=== PATIENT | female | born 1935 | race Caucasian/White ===

== ENCOUNTER 2017-07-01 11:29 | Inpatient (IN) ==
[2017-07-01] MEDS ORDERED: ACETAMINOPHEN 325 MG TABLET PO PRN (11:45)
[2017-07-01 13:11] LABS: Basophils % 0.4 % (0.0-0.8); Eosinophils # 0.2 10*3/uL (0.0-0.87); Eosinophils % 1.4 % (0.00-10.9); Hematocrit 32.3 VOL% (35.7-47.0); Immature Granulocytes % 0.9 %; Lymphocytes # 1.4 10*3/uL (1.4-4.0); Mean Corpuscular HGB Conc 34.1 GM/DL (32-36); Mean Corpuscular Hemoglobin 33 PG (27-34); Mean Corpuscular Volume 97.9 FL (87-102); Mean Platelet Volume 9.8 FL (9.6-12.0); Monocytes # 0.9 10*3/uL (0.11-0.8); Monocytes % 8.1 % (1.7-12.7); Neutrophils # 8.3 10*3/uL (1.4-7.4); Neutrophils % 76.2 % (38.7-73.9); Platelet Count 170 T/CUMM (130-400); Red Cell Distribution Width 14.6 % (9.3-17.3); White Blood Count 10.8 T/CUMM (4-12)
[2017-07-01] MEDS ORDERED: ACETAMINOPHEN 650 MG PO PRN (13:13)
[2017-07-01] MEDS ORDERED: MAGNESIUM HYDROXIDE SUSP 30 ML UDCUP PO PRN (13:13)
[2017-07-01 13:39] LABS: Albumin 3.6 G/DL (3.4-5.0); Bilirubin,Total 0.7 MG/DL (0.2-1.0); Calcium 9.3 MG/DL (8.5-10.1); Osmolality,Calculated 265.7 MOS/KG (273-304); Potassium 4.9 MMOL/L (3.5-5.1); Total Protein 6.5 G/DL (6.4-8.3)
--- NOTE | 2017-07-01 13:47 | Family Practice History&Phys ---
Assessment and Plan (1) Continuous severe abdominal pain Status: Acute Assessment and plan: 06/23/2017: CT of the abdomen will be ordered. Lipase, amylase and lactic acid are pending. Current Visit: Yes History of Present Illness Chief complaint: Abdominal pain History of present illness: Ms. June is a 81 year old female Patient 81-year-old white male presented the office complaining of bilateral flank and upper abdominal pain. Patient states this been going on now for approximately a week and getting more intense with each passing day. Patient states her home pain medication is not proving beneficial in controlling her discomfort. She has not had any nausea vomiting and she denies any blood in her stool or melena. She is not having any dyspepsia. Her daughter tells me her tumor markers have been quite elevated of late. Patient denies any fever or chills. Patient states the pain is worse with movement and relieved by rest. Home Medications Medication Instructions Recorded Confirmed Type Magnesium 200 mg PO DAILY 10/02/15 01/14/17 History Multivitamin [Multivitamins] 1 each PO DAILY 10/02/15 01/14/17 History Furosemide Tab [Lasix Tab] 40 mg PO DAILY #30 tablet 04/03/16 01/14/17 Rx Calcium Carbonate/Vitamin D3 2 tablet PO DAILY 04/09/16 01/14/17 History [Calcium 500 + Vit D Caplet] Carvedilol [Coreg] 25 mg PO BID 12/09/16 01/14/17 History Levothyroxine Tab [Synthroid Tab] 50 mcg PO DAILY 12/09/16 01/14/17 History Valsartan/Hydrochlorothiazide 1 each PO DAILY 12/09/16 01/14/17 History [Valsartan-Hctz 160-25 mg Tab] Cyanocobalamin (Vitamin B-12) 1 tablet PO DAILY 12/17/16 01/14/17 History [Vitamin B-12] Ferrous Sulfate ER Tab [Slow Fe] 140 mg PO DAILY 12/17/16 01/14/17 History Gabapentin Cap/Tab [Neurontin 200 mg PO TID 12/17/16 01/14/17 History Cap/Tab] Tramadol HCl [Tramadol Tab] 50 mg PO Q6H PRN 12/17/16 01/14/17 History Magnesium Hydroxide Susp [Milk of 30 ml PO DAILY PRN #0 udcup 12/21/16 01/14/17 Rx Magnesia] Aspirin [Ecotrin] 81 mg PO DAILY 01/14/17 01/14/17 History Atorvastatin [Lipitor] 40 mg PO QPM 01/14/17 01/14/17 History Folic Acid Tab 0.4 mg PO DAILY 01/14/17 01/14/17 History HYDROcodone/ACETAMIN 10-325 [Taylor 1 tablet PO Q6H PRN 01/14/17 01/14/17 History 10-325] Ondansetron Odt Tab [Zofran Odt] 4 mg PO DAILY PRN 01/14/17 01/14/17 History Polyethylene Glycol Powder 17 gm PO DAILY 01/14/17 01/14/17 History [Miralax] Acetaminophen Tab [Tylenol Tab] 650 mg PO Q6H PRN #0 tablet 01/17/17 Rx Allergies Allergy/AdvReac Type Severity Reaction Status Date / Time No Known Drug Allergies Allergy Unknown HIVES Verified 12/09/16 10:15 - Constitutional Constitutional: Present: fatigue, weakness. Absent: chills, fever(s), weight gain, weight loss - EENT Eyes: Absent: blurry vision, loss of vision Ears: Absent: decreased hearing, ear pain Nose, mouth and throat: Absent: hoarseness, sinus pressure, sore throat - Cardiovascular Cardiovascular: Absent: chest pain at rest, diaphoresis, dyspnea, orthopnea, palpitations, PND - Respiratory Respiratory: Absent: cough, dyspnea, dyspnea on exertion - Gastrointestinal Gastrointestinal: Present: as per HPI, abdominal pain. Absent: diarrhea, dyspepsia, dysphagia, melena, nausea, vomiting - Genitourinary Genitourinary: Absent: difficulty urinating, urinary frequency, urinary hesitancy - Musculoskeletal Musculoskeletal: Present: as per HPI, back pain (Bilateral flank pain). Absent : arthralgias - Neurological Neurological: Absent: confusion, focal weakness, numbness, paresthesias - Psychiatric Psychiatric: Absent: anxiety, depression - Endocrine Endocrine: Absent: fatigue, polydipsia, polyphagia - Hematologic/Lymphatic Hematologic/Lymphatic: Absent: easy bleeding, easy bruising Medical,Surgical,& Family Hx - Medical History Cardio: History of: CHF, Hypertension Endocrine: History of: Endocrine Cancer (ovarian carcinoma under chemotherapy treatment) No history of: Diabetes Mellitus (NIDDM) Rheumatology: History of;: Rheumatoid Arthritis Respiratory: History of: Pneumonia Genitourinary: History of: Kidney Stones Gastrointestinal: History of: Diverticulitis/ Diverticulosis (years ago), GERD, Polyps (removed years ago 15) Hematology: History of: Anemia Reproductive: History of: Reproductive Problems (OVARIAN CANCER) - Surgical History Cardiac Surgeries: Sugical HX of: Cardiac Catheterization (2004 and 2008, no stents) Abdominal Surgeries: Surgical HX of: Abdominal Surgery (complete hysterectomy) Reproductive Surgeries: Surgical HX of;: Gynecologic Surgery (Ovarian cancer- extensive in [place]), Hysterectomy - Family History Family History: Reports;: Family Cancer (dad, mom, brother) Denies;: Family Diabetes, Family Heart Disease, Family Stroke - Social History Smoking Status: Former smoker Frequency of Alcohol Use: None Type of Drug Use: None Exam - Constitutional Vitals: Period Temp Pulse Resp BP Sys/Pagan Pulse Ox Last 24 Hr 97.7 F 60 20 158/75 96 Exam: General: Objective patient is a well-developed white female who appears uncomfortable. She is able give an excellent history. HEENT: Pupils equal and reactive to light. Patient is noted to have some pallor of her conjunctiva. Her pharynx is benign. Neck: No meningismus, adenopathy, thyromegaly. There are no auscultated carotid bruits. Cardiovascular: Regular rhythm. No murmurs or gallops Chest: Clear to auscultation without rales rhonchi wheezes. Abdomen: Patient's noted to have some mild direct upper abdominal tenderness directly. There is no no masses, rebound, guarding or abnormal bowel sounds. Neuro: Cranial nerves intact and DTRs and strength symmetric in all extremities. Dermatologic: No evidence of abnormal lesions or masses. Musculoskeletal: There is no joint swelling or tenderness or deformity. Extremities: There is no calf swelling or tenderness. Results - Labs CBC & BMP: 07/01/17 12:58 07/01/17 12:58 Lab Results: I have reviewed the past 24 hour labs
[2017-07-01] MEDS ORDERED: ONDANSETRON ODT 4 MG TABLET PO PRN (14:00)
[2017-07-01 14:45] LABS: Lactic Acid 0.4 MMOL/L (0.4-2.0)
--- NOTE | 2017-07-01 16:05 | CT Report ---
Referring physician: Ted Huynh EXAM: CT abdomen and pelvis with contrast DATE: 07/01/2017 COMPARISON: 01/11/2017 REASON: Severe generalized abdominal pain, history of ovarian cancer TECHNIQUE: Axial images of the abdomen and pelvis were obtained after administration of 80 cc of Omnipaque 350 IV contrast. Oral contrast was also administered. Coronal and sagittal reformatted images were also provided. Total DLP is 674.80 mGy*cm. FINDINGS: Persistent atelectasis/scarring at the visualized lung bases with cardiomegaly and coronary artery calcifications. Minimal elongation of the right lobe of the liver with no masses, dilated ducts, or calcified gallstones. Multiple calcified granulomata are noted in the spleen which remains normal in size. Inhomogeneous enhancement on the initial scans but no obvious masses are noted on the delayed scans. The pancreas and adrenal glands are stable in appearance. Cortical scarring kidneys with multiple left renal cysts. Persistent 12 mm calcification in the cortex of the midpole of the left kidney. No definite ureteral calculi are identified. Calcification in the wall of the nondilated abdominal aorta with no adjacent adenopathy. 65 mm hiatal hernia with portions of the small bowel minimally larger in size. The oral contrast reaches the distal small bowel but not the colon. Progressive [id number] gaseous distention of the colon with increased fecal material. Diverticulosis of the colon with no evidence of definite diverticulitis with suboptimal demonstration of the appendix. No free air is identified. Progressive minimal ascites in the abdomen and pelvis with thickening of the mesentery. Prior hysterectomy with no acute findings in the urinary bladder. The urinary bladder is more distended to the level of S1-S2. IMPRESSION: Status post hysterectomy with progressive minimal abdominal and pelvic ascites and what appears to be some thickening of the mesentery. This finding could be related to possible metastatic disease in patient with known history of ovarian cancer. 65 mm hiatal hernia. The oral contrast does not reach the colon with minimal increase in the size of the small bowel. Follow-up x-ray is recommended to document passage into the colon. There is also mild to moderate gaseous distention of the colon which could be related to ileus, etc. There is increased fecal material in colon with diverticulosis of the colon. Diffuse arterial calcifications. Multiple renal cysts with stable calcification in the left kidney. The CT exam was performed using one or more of the following dose reduction techniques: Automated exposure control and adjustment of the mA and/or kV according to patient size. PROCEDURE INTERPRETED AT [facility] DEPARTMENT OF RADIOLOGY Final Report Signed by: Dr. Shreya Hughes
[2017-07-01] MEDS: SODIUM CHLORIDE 0.45% 1,000 ML IV SCH (16:39)
[2017-07-01] MEDS: CARVEDILOL 25 MG TABLET PO SCH (16:39)
[2017-07-01 19:06] LABS: Apearance,Urine CLEAR (Clear); Bilirubin,Urine Negative (Negative); Blood, Urine Negative (Negative); Glucose,Urine (UA) Negative (Negative); Ketones,Urine Negative (Negative); Nitrite,Urine Negative (Negative); Protein,Urine Negative; Urine Color Straw (Yellow); Urine Specific Gravity 1.024 (1.001-1.035); Urine Urobilinogen < 2.0 EU/DL (0.2-1.0); WBC,Urine <1 /HPF (0-6)
[2017-07-01] MEDS: ATORVASTATIN 40 MG TABLET PO SCH (21:53)
[2017-07-01] MEDS: DOCUSATE SODIUM 100 MG CAPSULE PO SCH (21:53)
[2017-07-01] MEDS: ONDANSETRON 4 MG/2 ML VIAL IV PRN (21:58)
[2017-07-02] MEDS: LEVOTHYROXINE 50 MCG TABLET PO SCH (06:08)
[2017-07-02] MEDS: SODIUM CHLORIDE 0.45% 1,000 ML IV SCH (06:08)
--- NOTE | 2017-07-02 07:37 | Family Practice Progress Note ---
Family Practice - PN: Subj Interval history: Patient states she is having more back pain this morning. Looks very uncomfortable after getting up and going to the restroom. Patient scheduled for MRI this morning. She obviously needs something for pain. Exam (Progress Note) - Constitutional Vitals: Period Temp Pulse Resp BP Sys/Pagan Pulse Ox Last 24 Hr 96.2 F-97.8 F 55-60 20-20 116-158/58-75 91-97 Exam: Objectively well-developed white female who is awake alert and appears quite uncomfortable. She had a great deal pain trying to get her up in bed. Cardiovascular heart rates regular without murmurs or gallops. Respiratory: Lungs clear to auscultation bilaterally. Abdomen: Patient has diffuse direct abdominal tenderness but no rebound or guarding. Neuro: Patient is symmetrical strength lower extremities. Results - Labs CBC & BMP: 07/01/17 12:58 07/01/17 12:58 Lab Results: I have reviewed the past 24 hour labs Assessment and Plan (1) Continuous severe abdominal pain Status: Acute Assessment and plan: 07/01/2017: CT of the abdomen will be ordered. Lipase, amylase and lactic acid are pending. 07/02/2017: Laboratory studies unremarkable. Will proceed with MRI of the L- spine. Current Visit: Yes
--- NOTE | 2017-07-02 07:37 | Oncology Consult Note ---
Assessment and Plan - Time spent with patient Time spent with patient: Greater than 30 minutes History of Present Illness History of present illness: Ms. June is a 81 year old female with history of recurrent ovarian cancer who we are following with observation only now and has been off chemotherapy for what I can recall is about 12 months. We have been following a slow rise in her CA 125 level through clinic but has not seen any definitive evidence of recurrence on imaging. She has stated numerous times that she would like further chemotherapy once we confirm she has recurrence. I have tried to convince her that chemotherapy may not be of any benefit to her but she is adamant that she would like to restart treatment once we confirm she has recurrence. At this point, she is admitted to the hospital yesterday with lower abdominal pain. Talking with her it sounds like her pain is more located in her bilateral flanks and radiates to her back. A CT scan yesterday showed no obvious intra-abdominal pathology. She does have some mild thickening of her mesentery but no definitive areas of recurrence. There is some slight distention of her small bowel and contrast was not yet in the colon but she does not have a clinical presentation of bowel obstruction. She has MRI scheduled today. Home Medications Medication Instructions Recorded Confirmed Type Magnesium 200 mg PO DAILY 10/02/15 01/14/17 History Multivitamin [Multivitamins] 1 each PO DAILY 10/02/15 01/14/17 History Furosemide Tab [Lasix Tab] 40 mg PO DAILY #30 tablet 04/03/16 01/14/17 Rx Calcium Carbonate/Vitamin D3 2 tablet PO DAILY 04/09/16 01/14/17 History [Calcium 500 + Vit D Caplet] Carvedilol [Coreg] 25 mg PO BID 12/09/16 01/14/17 History Levothyroxine Tab [Synthroid Tab] 50 mcg PO DAILY 12/09/16 01/14/17 History Valsartan/Hydrochlorothiazide 1 each PO DAILY 12/09/16 01/14/17 History [Valsartan-Hctz 160-25 mg Tab] Cyanocobalamin (Vitamin B-12) 1 tablet PO DAILY 12/17/16 01/14/17 History [Vitamin B-12] Ferrous Sulfate ER Tab [Slow Fe] 140 mg PO DAILY 12/17/16 01/14/17 History Gabapentin Cap/Tab [Neurontin 200 mg PO TID 12/17/16 01/14/17 History Cap/Tab] Tramadol HCl [Tramadol Tab] 50 mg PO Q6H PRN 12/17/16 01/14/17 History Magnesium Hydroxide Susp [Milk of 30 ml PO DAILY PRN #0 udcup 12/21/16 01/14/17 Rx Magnesia] Aspirin [Ecotrin] 81 mg PO DAILY 01/14/17 01/14/17 History Atorvastatin [Lipitor] 40 mg PO QPM 01/14/17 01/14/17 History Folic Acid Tab 0.4 mg PO DAILY 01/14/17 01/14/17 History HYDROcodone/ACETAMIN 10-325 [Circle 1 tablet PO Q6H PRN 01/14/17 01/14/17 History 10-325] Ondansetron Odt Tab [Zofran Odt] 4 mg PO DAILY PRN 01/14/17 01/14/17 History Polyethylene Glycol Powder 17 gm PO DAILY 01/14/17 01/14/17 History [Miralax] Acetaminophen Tab [Tylenol Tab] 650 mg PO Q6H PRN #0 tablet 01/17/17 Rx Allergies Allergy/AdvReac Type Severity Reaction Status Date / Time No Known Drug Allergies Allergy Unknown HIVES Verified 12/09/16 10:15 Medical,Surgical,& Family Hx - Medical History Cardio: History of: CHF, Hypertension Endocrine: History of: Endocrine Cancer (ovarian carcinoma under chemotherapy treatment) No history of: Diabetes Mellitus (NIDDM) Rheumatology: History of;: Rheumatoid Arthritis Respiratory: History of: Pneumonia Genitourinary: History of: Kidney Stones Gastrointestinal: History of: Diverticulitis/ Diverticulosis (years ago), GERD, Polyps (removed years ago 15) Hematology: History of: Anemia Reproductive: History of: Reproductive Problems (OVARIAN CANCER) - Surgical History Cardiac Surgeries: Sugical HX of: Cardiac Catheterization (2004 and 2008, no stents) Abdominal Surgeries: Surgical HX of: Abdominal Surgery (complete hysterectomy) Reproductive Surgeries: Surgical HX of;: Gynecologic Surgery (Ovarian cancer- extensive in [place]), Hysterectomy - Family History Family History: Reports;: Family Cancer (dad, mom, brother) Denies;: Family Diabetes, Family Heart Disease, Family Stroke - Social History Smoking Status: Former smoker Frequency of Alcohol Use: None Type of Drug Use: None 12 point system: reviewed and no additional remarkable complaints except as stated - Gastrointestinal Gastrointestinal: Present: abdominal pain, constipation. Absent: cramping, diarrhea - Genitourinary Genitourinary ROS female: Present: flank pain - Musculoskeletal Musculoskeletal ROS: Present: back pain Exam - Constitutional Vitals: Period Temp Pulse Resp BP Sys/Pagan Pulse Ox Last 24 Hr 96.2 F-97.8 F 55-60 20-20 116-158/58-75 91-97 General appearance: normal weight, no acute distress - Head Head Exam: Present: normocephalic, atraumatic - Eye Eye Exam: Present: EOMI Pupils: Present: PERRL - ENT ENT exam: Present: normal exam, normal oropharynx - Neck Neck exam: Absent: lymphadenopathy, thyromegaly - Respiratory Respiratory exam: Present: CTAB. Absent: wheezes - Cardiovascular Cardiovascular exam: Present: RRR. Absent: JVD - GI/Abdominal GI/Abdominal exam: Present: soft. Absent: ascites, distended, firm, mass - Neurological Exam Neurological exam: Present: alert, oriented X3 - Psychiatric Psychiatric exam: Present: normal affect, normal mood - Skin Skin exam: Present: warm, dry Results - Labs CBC & BMP: 07/01/17 12:58 07/01/17 12:58 Lab Results: I have reviewed the past 24 hour labs
[2017-07-02] MEDS ORDERED: LACTULOSE 20 GM/30 ML UDCUP PO ONE (09:00)
[2017-07-02] MEDS: CARVEDILOL 25 MG TABLET PO SCH ×2 (09:02→17:46)
[2017-07-02] MEDS: CALCIUM (CARBONATE)/VITAMIN D 600 MG-400 UNIT TABLET PO SCH (09:02)
[2017-07-02] MEDS: ASPIRIN EC 81 MG TABLET PO SCH (09:02)
[2017-07-02] MEDS: CYANOCOBALAMIN 500 MCG TABLET PO SCH (09:03)
[2017-07-02] MEDS: FERROUS SULFATE ER 140 MG TABLET PO SCH (09:03)
[2017-07-02] MEDS: FOLIC ACID 0.4 MG TABLET PO SCH (09:03)
[2017-07-02] MEDS: PANTOPRAZOLE 40 MG TABLET PO SCH (09:03)
[2017-07-02] MEDS: POLYETHYLENE GLYCOL POWDER 17 GM PACK PO SCH (09:03)
[2017-07-02] MEDS: VALSARTAN/HCTZ 80-12.5 MG TABLET PO SCH (09:03)
[2017-07-02] MEDS: DOCUSATE SODIUM 100 MG CAPSULE PO SCH ×2 (09:03→21:50)
[2017-07-02] MEDS: FUROSEMIDE 40 MG TABLET PO SCH (09:03)
[2017-07-02] MEDS: MAGNESIUM OXIDE 400 MG TABLET PO SCH (09:04)
[2017-07-02] MEDS: HYDROmorphone 2 MG/1 ML VIAL IV PRN ×2 (09:04→18:07)
--- NOTE | 2017-07-02 10:50 | XRay Report ---
XR KUB Indication: Generalized abdominal pain Comparison: Abdominal CT dated July 01, 2017 Technique: Frontal views of the abdomen Findings: Nonspecific bowel gas pattern. Residual contrast material noted within the right and transverse colon. Nonspecific left upper quadrant calcific densities measuring 9 and 10 mm respectively likely reflecting granulomatous calcifications of the spleen seen on comparison study. Diffuse osteopenia. Presumed pelvic phleboliths. IMPRESSION: As above. PROCEDURE INTERPRETED AT [facility] DEPARTMENT OF RADIOLOGY Final Report Signed by: Dr Homar Tatum
[2017-07-02] MEDS: ONDANSETRON 4 MG/2 ML VIAL IV PRN ×2 (13:15→19:24)
--- NOTE | 2017-07-02 14:41 | Magnetic Resonance Report ---
MR lumbar spine wo con Indication: Severe back pain Comparison: Lumbar MRI dated December 11, 2016 Technique: Multiplanar MRI imaging of the lumbar spine was performed without the use of intravenous contrast. Findings: Mild marginal osteophyte formation noted at several levels. Vertebral body heights and alignment are maintained. Intervertebral disc space levels: L1-L2: Disc desiccation with minimal loss of disc space height. Minimal diffuse disc bulge without significant spinal canal or neuroforaminal narrowing. L2-L3: Disc desiccation with mild loss of disc space height. Diffuse disc bulge with posterior facet and ligamentum flavum hypertrophy results in moderate spinal canal narrowing as well as [id number] bilateral neuroforaminal narrowing. L3-L4: Disc desiccation. Minimal diffuse disc bulge with posterior facet and ligamentum flavum hypertrophy. Minimal spinal canal narrowing. Mild bilateral neuroforaminal narrowing. L4-L5: Moderate loss of disc space height. Diffuse disc bulge with posterior facet and ligamentum flavum hypertrophy results in severe spinal canal narrowing. There is moderate bilateral neuroforaminal narrowing. L5-S1: Disc desiccation. Mild diffuse disc bulge with posterior facet arthropathy. Mild spinal canal narrowing. Mild bilateral neuroforaminal narrowing. IMPRESSION: Degenerative change of the lumbar spine with spinal canal and neuroforaminal narrowing as detailed above. Spinal canal narrowing appears severe at L4-5. Findings appear similar to study dated December 11, 2016. PROCEDURE INTERPRETED AT [facility] DEPARTMENT OF RADIOLOGY Final Report Signed by: Dr Homar Tatum
--- NOTE | 2017-07-02 17:51 | Pain Management Consult Note ---
Assessment and Plan (1) Thoracic spine pain Problem details: New onset thoracic spinal pain with referral to upper abdomen chest wall Status: Acute Assessment and plan: 07/02/2017. The patient is very pleasant 81-year-old female with a history of ovarian cancer. Possibly 2 weeks ago she developed worsening pain in the mid upper back with radiation around her torso to the upper abdomen. Worst pain being in the mid upper back to her flanks bilaterally. The pain is worsened to the point that it hurts to move and thus she is essentially been bedbound for several days now. It came on suddenly without known injury. Based on my exam and the patient's history several possibilities exist for her pain including the distinct possibility of a vertebral fracture in the thoracic spine. Associated with this she has a thoracic radiculitis. She has a history of ovarian cancer. MRI of the thoracic spine is now necessary. y Current Visit: Yes (2) Lumbar spinal stenosis Problem details: MRI demonstrates lumbar spinal stenosis L4 5 Status: Acute Assessment and plan: The patient has multilevel degenerative change lumbar spine with both foraminal narrowing and severe lumbar spinal stenosis at L4-5 level. She has some mild claudicatory symptomatology ongoing. She also has mild radicular symptomatology with lower extremity pain at times. This is not as severe as her thoracic spinal pain. Current Visit: No History of Present Illness Chief complaint: Back and flank pain History of present illness: Ms. June is a 81 year old female with a two-week history of mid back and flank pain around her ribs bilaterally. Is a throbbing aching stabbing pain worse with any movement. Came on suddenly without any known injury. Due to the severity of the pain her activity level has diminished to essentially being bedbound at this point. Home Medications Medication Instructions Recorded Confirmed Type Magnesium 200 mg PO DAILY 10/02/15 01/14/17 History Multivitamin [Multivitamins] 1 each PO DAILY 10/02/15 01/14/17 History Furosemide Tab [Lasix Tab] 40 mg PO DAILY #30 tablet 04/03/16 01/14/17 Rx Calcium Carbonate/Vitamin D3 2 tablet PO DAILY 04/09/16 01/14/17 History [Calcium 500 + Vit D Caplet] Carvedilol [Coreg] 25 mg PO BID 12/09/16 01/14/17 History Levothyroxine Tab [Synthroid Tab] 50 mcg PO DAILY 12/09/16 01/14/17 History Valsartan/Hydrochlorothiazide 1 each PO DAILY 12/09/16 01/14/17 History [Valsartan-Hctz 160-25 mg Tab] Cyanocobalamin (Vitamin B-12) 1 tablet PO DAILY 12/17/16 01/14/17 History [Vitamin B-12] Ferrous Sulfate ER Tab [Slow Fe] 140 mg PO DAILY 12/17/16 01/14/17 History Gabapentin Cap/Tab [Neurontin 200 mg PO TID 12/17/16 01/14/17 History Cap/Tab] Tramadol HCl [Tramadol Tab] 50 mg PO Q6H PRN 12/17/16 01/14/17 History Magnesium Hydroxide Susp [Milk of 30 ml PO DAILY PRN #0 udcup 12/21/16 01/14/17 Rx Magnesia] Aspirin [Ecotrin] 81 mg PO DAILY 01/14/17 01/14/17 History Atorvastatin [Lipitor] 40 mg PO QPM 01/14/17 01/14/17 History Folic Acid Tab 0.4 mg PO DAILY 01/14/17 01/14/17 History HYDROcodone/ACETAMIN 10-325 [Lucas 1 tablet PO Q6H PRN 01/14/17 01/14/17 History 10-325] Ondansetron Odt Tab [Zofran Odt] 4 mg PO DAILY PRN 01/14/17 01/14/17 History Polyethylene Glycol Powder 17 gm PO DAILY 01/14/17 01/14/17 History [Miralax] Acetaminophen Tab [Tylenol Tab] 650 mg PO Q6H PRN #0 tablet 01/17/17 Rx Allergies Allergy/AdvReac Type Severity Reaction Status Date / Time No Known Drug Allergies Allergy Unknown HIVES Verified 12/09/16 10:15 Medical,Surgical,& Family Hx - Medical History Cardio: History of: CHF, Hypertension Endocrine: History of: Endocrine Cancer (ovarian carcinoma under chemotherapy treatment) No history of: Diabetes Mellitus (NIDDM) Rheumatology: History of;: Rheumatoid Arthritis Respiratory: History of: Pneumonia Genitourinary: History of: Kidney Stones Gastrointestinal: History of: Diverticulitis/ Diverticulosis (years ago), GERD, Polyps (removed years ago 15) Hematology: History of: Anemia Reproductive: History of: Reproductive Problems (OVARIAN CANCER) - Surgical History Cardiac Surgeries: Sugical HX of: Cardiac Catheterization (2004 and 2008, no stents) Abdominal Surgeries: Surgical HX of: Abdominal Surgery (complete hysterectomy) Reproductive Surgeries: Surgical HX of;: Gynecologic Surgery (Ovarian cancer- extensive in [place]), Hysterectomy - Family History Family History: Reports;: Family Cancer (dad, mom, brother) Denies;: Family Diabetes, Family Heart Disease, Family Stroke - Social History Smoking Status: Former smoker Frequency of Alcohol Use: None Type of Drug Use: None - Constitutional Constitutional: Present: fatigue - Respiratory Respiratory: Present: dyspnea - Gastrointestinal Gastrointestinal: Present: constipation - Genitourinary Genitourinary: Present: flank pain - Musculoskeletal Musculoskeletal: Present: arthralgias, back pain, muscle cramps (Both lower extremities) - Neurological Neurological: Present: paresthesias (Feet and shins) Exam - Constitutional Vitals: Period Temp Pulse Resp BP Sys/Pagan Pulse Ox Last 24 Hr 96.0 F-97.9 F 55-68 18-20 107-137/56-75 90-93 General appearance: mild distress - Head Head exam: Present: normocephalic - ENT Mouth exam: Present: normal voice - Neck Neck exam: Present: normal inspection - Respiratory Respiratory exam: Present: rhonchi - Cardiovascular Cardiovascular exam: Present: RRR - GI/Abdominal GI/Abdominal exam: Present: hypoactive bowel sounds, tenderness (Minimal tenderness) - Back Exam Back exam: Present: vertebral tenderness (Thoracic spine) - Neurological Exam Neurological exam: Present: alert, oriented X3, CN II-XII intact, motor sensory deficit (Sensory loss feet and shins) Speech: Present: normal - Skin Skin exam: Present: normal color Results - Labs CBC & BMP: 07/01/17 12:58 07/01/17 12:58
[2017-07-02] MEDS: GABAPENTIN 100 MG CAPSULE PO SCH (21:50)
[2017-07-02] MEDS: ATORVASTATIN 40 MG TABLET PO SCH (21:50)
[2017-07-03] MEDS: SODIUM CHLORIDE 0.45% 1,000 ML IV SCH ×3 (02:46→16:06)
[2017-07-03] MEDS: LEVOTHYROXINE 50 MCG TABLET PO SCH (06:23)
--- NOTE | 2017-07-03 08:07 | Family Practice Progress Note ---
Family Practice - PN: Subj Interval history: Patient states her back pain persists. Seen by Dr. Solis yesterday and is ordering MRI of her thoracic spine. She is indeed having flank pain with this. She is still having nausea and vomiting. Exam (Progress Note) - Constitutional Vitals: Period Temp Pulse Resp BP Sys/Pagan Pulse Ox Last 24 Hr 96.0 F-98.4 F 58-74 18-20 107-160/56-75 90-93 Exam: Objectively well-developed white female who is awake alert and appears uncomfortable this morning. Cardiovascular heart rates regular without murmurs or gallops. Respiratory: Lungs clear to auscultation bilaterally. Abdomen: Patient has diffuse direct abdominal tenderness but no rebound or guarding. Neuro: Patient is symmetrical strength lower extremities. Results - Labs CBC & BMP: 07/01/17 12:58 07/01/17 12:58 Lab Results: I have reviewed the past 24 hour labs Assessment and Plan (1) Continuous severe abdominal pain Status: Acute Assessment and plan: 07/01/2017: CT of the abdomen will be ordered. Lipase, amylase and lactic acid are pending. 07/02/2017: Laboratory studies unremarkable. Will proceed with MRI of the L- spine. 07/03/2017: MRI of the T-spine will be ordered. Current Visit: Yes
[2017-07-03] MEDS: CYANOCOBALAMIN 500 MCG TABLET PO SCH (08:15)
[2017-07-03] MEDS: FERROUS SULFATE ER 140 MG TABLET PO SCH (08:15)
[2017-07-03] MEDS: CALCIUM (CARBONATE)/VITAMIN D 600 MG-400 UNIT TABLET PO SCH (08:15)
[2017-07-03] MEDS: VALSARTAN/HCTZ 80-12.5 MG TABLET PO SCH (08:15)
[2017-07-03] MEDS: PANTOPRAZOLE 40 MG TABLET PO SCH (08:16)
[2017-07-03] MEDS: FOLIC ACID 0.4 MG TABLET PO SCH (08:16)
[2017-07-03] MEDS: GABAPENTIN 100 MG CAPSULE PO SCH ×3 (08:16→21:03)
[2017-07-03] MEDS: MAGNESIUM OXIDE 400 MG TABLET PO SCH (08:16)
[2017-07-03] MEDS: CARVEDILOL 25 MG TABLET PO SCH ×2 (08:16→16:02)
[2017-07-03] MEDS: DOCUSATE SODIUM 100 MG CAPSULE PO SCH ×2 (08:16→21:03)
[2017-07-03] MEDS: ASPIRIN EC 81 MG TABLET PO SCH (08:16)
[2017-07-03] MEDS: POLYETHYLENE GLYCOL POWDER 17 GM PACK PO SCH (08:16)
[2017-07-03] MEDS: FUROSEMIDE 40 MG TABLET PO SCH (08:16)
--- NOTE | 2017-07-03 14:16 | Magnetic Resonance Report ---
History: New onset pain of the thoracic spine. Thoracic radiculitis. History of ovarian cancer Date: 07/03/2017 Study: MRI thoracic spine without contrast Comparison exam: December 11, 2016 The thoracic spine was imaged in the sagittal and axial planes on the 1.5 Shereen magnet without IV contrast. Sequences include T1, T2, and STIR sequences. The study has some mild patient motion artifact. The thoracic cord is normal in caliber and signal without obvious intrinsic mass lesion or edema. There is a relatively acute 20% or less compression fracture involving the superior aspect of the T11 vertebral body. There are well-defined trabecular fracture planes; there is a moderate amount of marrow edema. There is no significant T11 vertebral body retropulsion. There is chronic T8 compression status post interval kyphoplasty since the comparison study. There are no additional compression fractures. There is a lobular hyperintense T1 and T2 hemangioma within the T6 vertebral body as before. There is some mild exaggerated thoracic kyphosis. There is no thoracic subluxation. There is mild scattered thoracic disc narrowing and disc desiccation. There is minimal scattered thoracic spondylosis. There is no thoracic level disc herniation or gross thoracic spinal stenosis of significance. Impression: Relatively acute T11 compression fracture as discussed above PROCEDURE INTERPRETED AT [facility] DEPARTMENT OF RADIOLOGY Final Report Signed by: Dr. Niki Marie
--- NOTE | 2017-07-03 18:06 | Pain Management Progress Note ---
Assessment and Plan (1) Thoracic spine pain Problem details: New onset thoracic spinal pain with referral to upper abdomen chest wall Status: Acute Assessment and plan: 07/03/2017. The patient in fact does have an acute fracture of T11 with approximately 30% volume height loss with the superior endplate fracture. Minimal retropulsion. She has severe pain with any movement and at this point is essentially bedbound due to the severity of her pain. She is now candidate for percutaneous kyphoplasty of T11 due to the severity of pain and loss of activities of daily living. We will proceed with this tomorrow around noon. I discussed the risk benefits and indications of the treatment options with the patient and her son. Y 07/02/2017. The patient is very pleasant 81-year-old female with a history of ovarian cancer. Possibly 2 weeks ago she developed worsening pain in the mid upper back with radiation around her torso to the upper abdomen. Worst pain being in the mid upper back to her flanks bilaterally. The pain is worsened to the point that it hurts to move and thus she is essentially been bedbound for several days now. It came on suddenly without known injury. Based on my exam and the patient's history several possibilities exist for her pain including the distinct possibility of a vertebral fracture in the thoracic spine. Associated with this she has a thoracic radiculitis. She has a history of ovarian cancer. MRI of the thoracic spine is now necessary. y Current Visit: Yes (2) Lumbar spinal stenosis Problem details: MRI demonstrates lumbar spinal stenosis L4 5 Status: Acute Assessment and plan: The patient has multilevel degenerative change lumbar spine with both foraminal narrowing and severe lumbar spinal stenosis at L4-5 level. She has some mild claudicatory symptomatology ongoing. She also has mild radicular symptomatology with lower extremity pain at times. This is not as severe as her thoracic spinal pain. Current Visit: No Pain - Subjective Interval history: Continued mid back pain radiating to her flanks bilaterally, worse with any movement, throbbing aching discomfort. Exam - Constitutional Vitals: Period Temp Pulse Resp BP Sys/Pagan Pulse Ox Last 24 Hr 97.0 F-98.4 F 62-74 18-20 122-168/63-79 90-93 General appearance: normal weight - Back Exam Back exam: Present: vertebral tenderness - Neurological Exam Neurological exam: Present: alert, oriented X3 Results - Labs CBC & BMP: 08/28/17 12:58 07/01/17 12:58
[2017-07-03] MEDS: ATORVASTATIN 40 MG TABLET PO SCH (21:03)
[2017-07-04] MEDS: SODIUM CHLORIDE 0.45% 1,000 ML IV SCH ×2 (04:37→21:19)
--- NOTE | 2017-07-04 07:59 | Family Practice Progress Note ---
Family Practice - PN: Subj Interval history: Patient states her back still causing her considerable discomfort. She is noted to have compression fracture T11 on her MRI of the T-spine. She is scheduled for kyphoplasty today with Dr. Solis. Exam (Progress Note) - Constitutional Vitals: Period Temp Pulse Resp BP Sys/Pagan Pulse Ox Last 24 Hr 97.0 F-98.6 F 61-89 20-20 122-168/56-79 90-92 Exam: Objectively well-developed white female who is awake alert and appears a little more comfortable this morning. Cardiovascular heart rates regular without murmurs or gallops. Respiratory: Lungs clear to auscultation bilaterally. Abdomen: Patient has diffuse direct abdominal tenderness but no rebound or guarding. Neuro: Patient is symmetrical strength lower extremities. Results - Labs CBC & BMP: 07/01/17 12:58 07/01/17 12:58 Lab Results: I have reviewed the past 24 hour labs - Diagnostic Findings Procedure: MRI: report reviewed by me (Compression fracture T11) Assessment and Plan (1) Continuous severe abdominal pain Status: Acute Assessment and plan: 07/01/2017: CT of the abdomen will be ordered. Lipase, amylase and lactic acid are pending. 07/02/2017: Laboratory studies unremarkable. Will proceed with MRI of the L- spine. 07/03/2017: MRI of the T-spine will be ordered. Current Visit: Yes (2) Traumatic compression fracture of T11 thoracic vertebra Status: Acute Assessment and plan: 07/04/2017: Patient scheduled for kyphoplasty today Current Visit: Yes
--- NOTE | 2017-07-04 09:04 | Case Mgmt Physician Query Form ---
TB Signs and Symptoms Screening ([place]) INSTRUCTIONS: To be completed annually on residents/staff with a significant Tuberculin Skin Test (TST) upon admission/hire or a prior significant TST. To be completed on all staff at hire. Please respond to each listed symptom with an (X) in either the "YES" or "NO" box. Do you currently have any of the following symptoms: YES NO ( ) (x ) A cough If yes, is it: ( ) Productive ( ) Non- productive ( ) (x ) Hemoptysis (spitting up blood) ( ) (x ) Chest pains ( ) (x ) Weight Loss ( ) (x ) Fever ( ) ( x) Night Sweats (x ) ( ) Weakness ( ) (x ) Loss of Appetite ( ) (x ) Difficulty Breathing If you answered YES" to any of the above questions, how long have symptoms been present? Comments: CAMRYN
[2017-07-04] MEDS: LEVOTHYROXINE 50 MCG TABLET PO SCH (09:39)
[2017-07-04] MEDS: DOCUSATE SODIUM 100 MG CAPSULE PO SCH ×2 (09:39→21:20)
[2017-07-04] MEDS: CALCIUM (CARBONATE)/VITAMIN D 600 MG-400 UNIT TABLET PO SCH (09:39)
[2017-07-04] MEDS: MAGNESIUM OXIDE 400 MG TABLET PO SCH (09:40)
[2017-07-04] MEDS: FERROUS SULFATE ER 140 MG TABLET PO SCH (09:40)
[2017-07-04] MEDS: GABAPENTIN 100 MG CAPSULE PO SCH ×3 (09:40→21:21)
[2017-07-04] MEDS: PANTOPRAZOLE 40 MG TABLET PO SCH (09:40)
[2017-07-04] MEDS: FOLIC ACID 0.4 MG TABLET PO SCH (09:40)
[2017-07-04] MEDS: POLYETHYLENE GLYCOL POWDER 17 GM PACK PO SCH (09:40)
[2017-07-04] MEDS: CYANOCOBALAMIN 500 MCG TABLET PO SCH (09:40)
[2017-07-04] MEDS: CARVEDILOL 25 MG TABLET PO SCH ×2 (09:41→16:11)
[2017-07-04] MEDS ORDERED: TUBERCULIN SKIN TEST 0.1 ML SYRINGE INTRADERM ONE (10:00)
--- NOTE | 2017-07-04 10:10 | Physician Query Form ---
CLICK EDIT DOCUMENT TO SELECT QUERY ANSWER --> OK --> SIGN Magali Nash RN, CCDS Certified Clinical Mail List Processor W) [phone] (f) [phone] [email or web address] PROVIDERS: Make your selection(s) from the choices in EACH section by typing an "x" and enter comments in the comment section. Please use your independent medical judgment in providing your response. This request does not imply that any particular answer is desired or expected. CLINICAL INDICATORS: (Providers should not edit this section) The medical record indicates that the patient was admitted with back pain, "It came on suddenly without known injury", History of " ovarian cancer" and "has been off chemotherapy for what I can recall is about 12 months". Please provide the following additional clarification regarding the Fracture: ETIOLOGY: select all that apply ( ) Traumatic ( ) Pathologic due to osteoporosis ( ) Pathologic due to neoplastic disease ( ) Pathologic due to metastatic disease ( ) Pathologic due to other disease, please specify: ( ) Due to a combination of trauma and osteoporosis but the trauma alone would not likely have been sufficient to cause the fracture (x ) Clinically unable to determine/cause unknown COMMENTS: PLEASE ALSO DOCUMENT RESPONSE IN PROGRESS NOTES AND/OR DISCHARGE SUMMARY Use of terms such as suspected, likely, or probable (associated with a specific diagnosis that is being evaluated, monitored, or treated as if it exists) are acceptable and can be restated in the discharge summary if not ruled out. MTDD
[2017-07-04] MEDS ORDERED: TISSUE ADHESIVE 1 EACH APPLICATOR TOP ONE (12:57)
[2017-07-04] MEDS ORDERED: ROPIVACAINE 0.5% 30 ML VIAL ONE (12:57)
--- NOTE | 2017-07-04 13:07 | XRay Report ---
Portable chest Date: 07/04/2017 Clinical history: Shortness of breath Comparison: 01/14/2017 Technique: Portable AP sitting chest Findings: The heart is minimally enlarged with arterial calcifications. Stable right venous access catheter. Chronic scarring in the lungs with residual atelectasis at the left lung base. Osteopenia with midthoracic kyphoplasty. Degenerative changes are noted. Incidental carotid artery calcifications. Impression: Chronic scarring in the lungs with residual atelectasis at the left lung base. No significant change in the appearance of the lungs. Osteopenia with prior kyphoplasty. PROCEDURE INTERPRETED AT [facility] DEPARTMENT OF RADIOLOGY Final Report Signed by: Dr. Shreya Hughes
[2017-07-04] MEDS ORDERED: ceFAZolin 1,000 MG VIAL ONE (13:12)
--- NOTE | 2017-07-04 13:45 | Operative Note ---
Date of procedure: 07/04/17 Pre-op diagnosis: Osteophyte compression fracture T11 Post-op diagnosis: same Procedure: Preoperative diagnosis: #1 acute osteoporotic compression fracture T11. Postoperative diagnosis: Same Procedure: Kyphoplasty and biopsy of T11. Anesthesia: MAC Complications: None Findings: The patient tolerated procedure well, partial tenriism of vertebral height was obtained. History of present illness: The patient is admitted to the hospital with intractable back pain due to an acute T11 fracture. She is a candidate for kyphoplasty due to severity of her pain and loss of activities of daily living. She might benefit from a swing bed after today's procedure for full recovery. Procedure note: The risk benefits and indications of the procedure were explained to the patient, including the option to do nothing all, she understood these and wished to proceed. The patient was placed in the prone position on the operating table and all pressure points padded. The back then was prepped with alcohol ChloraPrep allowed to dry and sterilely draped. Strict sterile technique was used throughout the procedure. Skin was raised above the pedicles of T11 bilaterally. Stab wound was made through the skin wheals and through the stab wound was advanced the bone trocar. These were advanced until they struck the posterior aspect of the pedicles of T11 bilaterally under careful fluoroscopic control. Then using a bone mouth are driven down to the pedicles and into the posterior aspect of the T11 vertebral body under fluoroscopy. I then obtain a biopsy of T11 to rule out other pathological causes of the fracture. I then advanced the bone drill into the body of T11 bilaterally. I then placed the balloon bone tamps into the vertebral body of T11 and inflated to 100-200 pounds per square inch, with each side holding 3 cc of contrasted fluid. There is partial tenriism of vertebral body height loss. While was doing this an operator/assistant foreman mixed the bone cement. After adequate set up time I then injected the bone cement using the syringe injection system. This is done after the balloon bone tamps had been removed. A total of 3 cc per side or total of 6 cc altogether were injected into the T11 vertebral body. There is excellent distribution throughout the vertebral body. The stylets then were placed back into the bone trochars and the bone trochars removed intact. The wounds were closed with surgical glue and sterilely dressed and the patient was taken to recovery in satisfactory condition. Anesthesia: MAC Surgeon / Physician: Brian Solis Estimated blood loss: minimal Specimens: none sent Condition: stable Disposition: PACU Results - Labs CBC & BMP: 07/01/17 12:58 07/01/17 12:58 Discharge Plan - Discharge Data Condition at Discharge: Stable - Discharge Medications No Action Multivitamin [Multivitamins] 1 each PO DAILY Magnesium 200 mg PO DAILY Furosemide Tab [Lasix Tab] 40 mg PO DAILY #30 tablet Calcium Carbonate/Vitamin D3 [Calcium 500 + Vit D Caplet] 2 tablet PO DAILY Carvedilol [Coreg] 25 mg PO BID Cyanocobalamin (Vitamin B-12) [Vitamin B-12] 1 tablet PO DAILY Folic Acid Tab 0.4 mg PO DAILY Atorvastatin [Lipitor] 40 mg PO QPM HYDROcodone/ACETAMIN 10-325 [[place] 10-325] 1 tablet PO Q6H PRN PRN Reason: Pain Valsartan/Hydrochlorothiazide [Valsartan-Hctz 160-25 mg Tab] 1 each PO DAILY Levothyroxine Tab [Synthroid Tab] 50 mcg PO DAILY Ferrous Sulfate ER Tab [Slow Fe] 140 mg PO DAILY Gabapentin Cap/Tab [Neurontin Cap/Tab] 200 mg PO TID - Follow Up or Referral - Forms/Instructions
--- NOTE | 2017-07-04 13:47 | Anesthesia Post-Op ---
Anesthesia Post OP - Post Ansesthetic Evaluation Patient seen in post op: Yes Resp: within normal limits CV: within normal limits Mental: within normal limits Temp: within normal limits [id number]: within normal limits Nausea and Vomiting: within normal limits Pain: within normal limits
[2017-07-04] MEDS ORDERED: PROPOFOL 200 MG/20 ML VIAL IV ONE (13:54)
[2017-07-04] MEDS ORDERED: MIDAZOLAM 2 MG/2 ML VIAL ONE (13:55)
[2017-07-04] MEDS ORDERED: fentaNYL 100 MCG/2 ML VIAL ONE (13:55)
[2017-07-04] MEDS ORDERED: hydrALAZINE 20 MG/1 ML VIAL ONE (14:03)
[2017-07-04] MEDS ORDERED: hydrALAZINE 20 MG/1 ML VIAL IV ONE (14:13)
[2017-07-04] MEDS: FUROSEMIDE 40 MG TABLET PO SCH (16:11)
[2017-07-04] MEDS: VALSARTAN/HCTZ 80-12.5 MG TABLET PO SCH (16:11)
[2017-07-04] MEDS: ONDANSETRON 4 MG/2 ML VIAL IV PRN (16:15)
[2017-07-04] MEDS: ATORVASTATIN 40 MG TABLET PO SCH (21:21)
[2017-07-05] MEDS ORDERED: ACETAMINOPHEN 650 MG SUPP RECTAL PRN (00:57)
--- NOTE | 2017-07-05 05:24 | Discharge Summary ---
Hospital Course - Hospital Course Hospital Course: Patient 81-year-old white female with stage IV ovarian cancer who presented to the office with intractable abdominal and flank pain. Patient was admitted my services and CT the abdomen pelvis were performed which revealed no evident etiology of her discomfort. MRI of the lumbosacral spine was obtained which reveal no acute fracture. She was seen in consultation by Dr. Brian Solis ordered and MRI of her thoracic spine and she was found to have a compression deformity of T11. Patient underwent kyphoplasty on 07/04/2017 and states her pain is improved. Were trying to find her swing bed. Patient is still a bit sedated this morning. Diagnosis - Discharge Diagnosis (1) Continuous severe abdominal pain Status: Acute (2) Traumatic compression fracture of T11 thoracic vertebra Status: Acute Discharge Plan - Discharge Data Disposition: Disch/Xfer to Snf Condition at Discharge: Stable Discharge Diet: advance to your usual diet Activity: as per physical therapy Hygiene: no restrictions Weight Bearing at Discharge: full weight bearing Contact your physician if you experience:: fever over 101 - Discharge Medications New Aspirin EC Tab 81 mg PO DAILY tablet Polyethylene Glycol Powder [Miralax] 17 gm PO DAILY Acetaminophen Tab [Tylenol Tab] 650 mg PO Q6H PRN tablet PRN Reason: Fever > 100.4 Or Headache Atorvastatin [Lipitor] 40 mg PO BEDTIME tablet Continue Magnesium 200 mg PO DAILY Furosemide Tab [Lasix Tab] 40 mg PO DAILY #30 tablet Calcium Carbonate/Vitamin D3 [Calcium 500 + Vit D Caplet] 2 tablet PO DAILY Carvedilol [Coreg] 25 mg PO BID Cyanocobalamin (Vitamin B-12) [Vitamin B-12] 1 tablet PO DAILY Folic Acid Tab 0.4 mg PO DAILY Atorvastatin [Lipitor] 40 mg PO QPM HYDROcodone/ACETAMIN 10-325 [[place] 10-325] 1 tablet PO Q6H PRN PRN Reason: Pain Valsartan/Hydrochlorothiazide [Valsartan-Hctz 160-25 mg Tab] 1 each PO DAILY Levothyroxine Tab [Synthroid Tab] 50 mcg PO DAILY Ferrous Sulfate ER Tab [Slow Fe] 140 mg PO DAILY Gabapentin Cap/Tab [Neurontin Cap/Tab] 200 mg PO TID No Action Multivitamin [Multivitamins] 1 each PO DAILY - Follow Up or Referral Follow Up: Dez Huynh MD [Primary Care Provider] - 2 Weeks - Forms/Instructions Exam - Constitutional Vitals: Period Temp Pulse Resp BP Sys/Pagan Pulse Ox Last 24 Hr 97.1 F-101.6 F 61-92 14-20 126-203/59-87 86-94 Exam: Objective well-developed white female who is somnolent and slow to respond this morning. She states her back pain is certainly improved. She follows simple commands accurately. Cardiovascular: Heart rates regular without murmurs or gallops. Respiratory: Lungs clear to auscultation bilaterally. Abdomen: Abdomen soft and nontender to palpation. DS: Provider Date of admission: 07/03/17 11:06 Primary care physician: Dez Huynh MD Attending physician on admission: Dez Huynh MD Consults: 07/01/17 11:45 Consult to Case Mgmt/Social Srvs [CONS] Routine Reason for Case Mgmt/Social Srvs: Discharge Planning 07/01/17 16:19 Consult to Physician [CONS] Routine Comment: Consulting Provider: Lucien Dejesus Person Notified: FROYLAN Date Notified: 07/02/17 Time Notified: 09:40 07/02/17 16:09 Consult to Physical Therapy [CONS] Routine Reason for Physical Therapy: Evaluate and Treat 07/02/17 16:21 Consult to Physician [CONS] Routine Comment: Consulting Provider: Brian Solis 07/04/17 07:57 Consult to Case Mgmt/Social Srvs [CONS] Routine Reason for Case Mgmt/Social Srvs: Swingbed/SNF/[facility] Consult Comment: Patient requests transfer to [facility]. Discharging clinician: Dez Huynh MD Expected date of discharge: 07/05/17
[2017-07-05] MEDS: LEVOTHYROXINE 50 MCG TABLET PO SCH (06:13)
[2017-07-05] MEDS: CYANOCOBALAMIN 500 MCG TABLET PO SCH (10:19)
[2017-07-05] MEDS: FOLIC ACID 0.4 MG TABLET PO SCH (10:20)
[2017-07-05] MEDS: FERROUS SULFATE ER 140 MG TABLET PO SCH (10:20)
[2017-07-05] MEDS: VALSARTAN/HCTZ 80-12.5 MG TABLET PO SCH (10:20)
[2017-07-05] MEDS: GABAPENTIN 100 MG CAPSULE PO SCH ×3 (10:20→20:59)
[2017-07-05] MEDS: CALCIUM (CARBONATE)/VITAMIN D 600 MG-400 UNIT TABLET PO SCH (10:21)
[2017-07-05] MEDS: MAGNESIUM OXIDE 400 MG TABLET PO SCH (10:21)
[2017-07-05] MEDS: FUROSEMIDE 40 MG TABLET PO SCH (10:22)
[2017-07-05] MEDS: DOCUSATE SODIUM 100 MG CAPSULE PO SCH ×2 (10:22→20:59)
[2017-07-05] MEDS: CARVEDILOL 25 MG TABLET PO SCH ×2 (10:23→17:07)
[2017-07-05] MEDS: ASPIRIN EC 81 MG TABLET PO SCH (10:23)
[2017-07-05] MEDS: PANTOPRAZOLE 40 MG TABLET PO SCH (10:23)
[2017-07-05] MEDS: POLYETHYLENE GLYCOL POWDER 17 GM PACK PO SCH (10:23)
[2017-07-05] MEDS: SODIUM CHLORIDE 0.45% 1,000 ML IV SCH ×2 (10:46→23:42)
--- NOTE | 2017-07-05 12:27 | Pathology Report from [facility] ---
[facility] ACCESSION # : [id number] PATIENT NAME : Sergio June ORDERING DR : CHRISTINE MAHAN MD CLINICAL HX: T11 compression fracture POST-OP DX: Same SPECIMEN INFO: T11 biopsy GROSS DESCRIPTION: The specimen is received in formalin labeled with the patients name and consists of a 0.6 x 0.2 cm vetebral body biopsy. Submitted in one cassette following decalcification. DIAGNOSIS FOR SERGIO JUNE: T11 BIOPSY: Cancellous bone, hypocellular with acute hemorrhage; no tumor seen. COLLECTED DATE: 07/04/2017 [facility] REPORT DATE: 07/05/2017 ELECTRONICALLY SIGNED BY: Masoud Thao M.D. 07/05/2017 - 10:02:22 [facility]
[2017-07-05] MEDS: ATORVASTATIN 40 MG TABLET PO SCH (20:59)
[2017-07-06] MEDS: LEVOTHYROXINE 50 MCG TABLET PO SCH (06:31)
--- NOTE | 2017-07-06 09:23 | Family Practice Progress Note ---
Family Practice - PN: Subj Interval history: 07/06/17-patient is generally doing well this a.m. Pain is controlled at present. Denies any new complaints. Patient will not be able to be admitted to swing bed until Saturday. Apparently will not accept new patient on holiday. We will continue present therapy over the weekend. Patient is not able to go home so we will maintain therapy until swing bed is available Exam (Progress Note) - Constitutional Vitals: Period Temp Pulse Resp BP Sys/Pagan Pulse Ox Last 24 Hr 97.8 F-98.8 F 61-74 18-20 107-158/56-82 90-95 Results - Labs CBC & BMP: 07/01/17 12:58 07/01/17 12:58 Specialty Discharge - Follow Up or Referrals Follow up with: Dez Huynh MD [Primary Care Provider] - 07/22/17 11:00 am
[2017-07-06] MEDS: CYANOCOBALAMIN 500 MCG TABLET PO SCH (10:06)
[2017-07-06] MEDS: VALSARTAN/HCTZ 80-12.5 MG TABLET PO SCH (10:07)
[2017-07-06] MEDS: FOLIC ACID 0.4 MG TABLET PO SCH (10:07)
[2017-07-06] MEDS: FERROUS SULFATE ER 140 MG TABLET PO SCH (10:07)
[2017-07-06] MEDS: CALCIUM (CARBONATE)/VITAMIN D 600 MG-400 UNIT TABLET PO SCH (10:07)
[2017-07-06] MEDS: DOCUSATE SODIUM 100 MG CAPSULE PO SCH ×2 (10:08→20:53)
[2017-07-06] MEDS: GABAPENTIN 100 MG CAPSULE PO SCH ×3 (10:08→20:53)
[2017-07-06] MEDS: MAGNESIUM OXIDE 400 MG TABLET PO SCH (10:08)
[2017-07-06] MEDS: ASPIRIN EC 81 MG TABLET PO SCH (10:08)
[2017-07-06] MEDS: CARVEDILOL 25 MG TABLET PO SCH ×2 (10:09→16:27)
[2017-07-06] MEDS: FUROSEMIDE 40 MG TABLET PO SCH (10:09)
[2017-07-06] MEDS: POLYETHYLENE GLYCOL POWDER 17 GM PACK PO SCH (10:09)
[2017-07-06] MEDS: PANTOPRAZOLE 40 MG TABLET PO SCH (10:09)
[2017-07-06] MEDS: SODIUM CHLORIDE 0.45% 1,000 ML IV SCH (12:49)
[2017-07-06] MEDS: ATORVASTATIN 40 MG TABLET PO SCH (20:53)
[2017-07-07] MEDS: ONDANSETRON 4 MG/2 ML VIAL IV PRN (00:20)
[2017-07-07] MEDS: SODIUM CHLORIDE 0.45% 1,000 ML IV SCH ×2 (01:35→01:36)
[2017-07-07 03:36] LABS: Basophils % 0.4 % (0.0-0.8); Eosinophils # 0.2 10*3/uL (0.0-0.87); Eosinophils % 2.3 % (0.00-10.9); Hematocrit 25.2 VOL% (35.7-47.0); Hemoglobin 8.8 GM/DL (12.0-16.0); Immature Granulocytes Absolute 0.07 #; Lymphocytes # 1.1 10*3/uL (1.4-4.0); Lymphocytes % 16.1 % (21.3-54.2); Mean Corpuscular HGB Conc 34.9 GM/DL (32-36); Mean Corpuscular Hemoglobin 33 PG (27-34); Mean Platelet Volume 9.7 FL (9.6-12.0); Monocytes # 0.8 10*3/uL (0.11-0.8); Monocytes % 11.3 % (1.7-12.7); Neutrophils # 4.8 10*3/uL (1.4-7.4); Neutrophils % 68.9 % (38.7-73.9); Platelet Count 150 T/CUMM (130-400); Red Blood Count 2.71 MC/CUMM (3.8-5.5)
[2017-07-07 04:02] LABS: Albumin 2.5 G/DL (3.4-5.0); Bilirubin,Total 1.1 MG/DL (0.2-1.0); Calcium 8.2 MG/DL (8.5-10.1); Osmolality,Calculated 259.5 MOS/KG (273-304); Potassium 3.1 MMOL/L (3.5-5.1); Total Protein 5.3 G/DL (6.4-8.3)
[2017-07-07] MEDS: LEVOTHYROXINE 50 MCG TABLET PO SCH (07:04)
[2017-07-07] MEDS: CYANOCOBALAMIN 500 MCG TABLET PO SCH (10:40)
[2017-07-07] MEDS: FOLIC ACID 0.4 MG TABLET PO SCH (10:40)
[2017-07-07] MEDS: FERROUS SULFATE ER 140 MG TABLET PO SCH (10:42)
[2017-07-07] MEDS: MAGNESIUM OXIDE 400 MG TABLET PO SCH (10:42)
[2017-07-07] MEDS: VALSARTAN/HCTZ 80-12.5 MG TABLET PO SCH (10:42)
[2017-07-07] MEDS: PANTOPRAZOLE 40 MG TABLET PO SCH (10:43)
[2017-07-07] MEDS: CARVEDILOL 25 MG TABLET PO SCH ×2 (10:43→17:39)
[2017-07-07] MEDS: DOCUSATE SODIUM 100 MG CAPSULE PO SCH ×2 (10:43→21:17)
[2017-07-07] MEDS: FUROSEMIDE 40 MG TABLET PO SCH (10:43)
[2017-07-07] MEDS: ASPIRIN EC 81 MG TABLET PO SCH (10:43)
[2017-07-07] MEDS: POLYETHYLENE GLYCOL POWDER 17 GM PACK PO SCH (10:45)
[2017-07-07] MEDS: GABAPENTIN 100 MG CAPSULE PO SCH ×3 (10:45→21:16)
[2017-07-07] MEDS: CALCIUM (CARBONATE)/VITAMIN D 600 MG-400 UNIT TABLET PO SCH (10:46)
--- NOTE | 2017-07-07 12:40 | Family Practice Progress Note ---
Family Practice - PN: Subj Interval history: 07/06/17-patient is generally doing well this a.m. Pain is controlled at present. Denies any new complaints. Patient will not be able to be admitted to swing bed until Saturday. Apparently will not accept new patient on holiday. We will continue present therapy over the weekend. Patient is not able to go home so we will maintain therapy until swing bed is available 07/07/17 -patient generally is doing well. Still states she is very weak. Difficult to sit up. Encourage patient to get up as much as possible. Her a.m. labs revealed a sodium of 125 with a potassium of 3.1. I have changed her IV fluids and encouraged increased fluid intake. We will continue present treatment plan Exam (Progress Note) - Constitutional Vitals: Period Temp Pulse Resp BP Sys/Pagan Pulse Ox Last 24 Hr 97.2 F-98.2 F 58-84 18-20 93-161/53-73 91-96 Results - Labs CBC & BMP: 07/07/17 03:04 07/07/17 03:04 Specialty Discharge - Follow Up or Referrals Follow up with: Dez Huynh MD [Primary Care Provider] - 07/22/17 11:00 am
[2017-07-07] MEDS: SODIUM CHLOR 0.9% KCL 20 MEQ 20 MEQ/1,000 ML BAG IV SCH (13:22)
[2017-07-07] MEDS: ATORVASTATIN 40 MG TABLET PO SCH (21:16)
[2017-07-08] MEDS: SODIUM CHLOR 0.9% KCL 20 MEQ 20 MEQ/1,000 ML BAG IV SCH ×3 (02:16→21:20)
[2017-07-08 04:07] LABS: Basophils % 0.3 % (0.0-0.8); Eosinophils # 0.2 10*3/uL (0.0-0.87); Eosinophils % 2.5 % (0.00-10.9); Hematocrit 26.4 VOL% (35.7-47.0); Hemoglobin 9.3 GM/DL (12.0-16.0); Immature Granulocytes % 1.2 %; Immature Granulocytes Absolute 0.08 #; Lymphocytes # 1.1 10*3/uL (1.4-4.0); Lymphocytes % 16.9 % (21.3-54.2); Mean Corpuscular HGB Conc 35.2 GM/DL (32-36); Mean Corpuscular Hemoglobin 33 PG (27-34); Mean Corpuscular Volume 92.6 FL (87-102); Mean Platelet Volume 9.8 FL (9.6-12.0); Monocytes # 0.8 10*3/uL (0.11-0.8); Monocytes % 11.5 % (1.7-12.7); Neutrophils # 4.5 10*3/uL (1.4-7.4); Neutrophils % 67.6 % (38.7-73.9); Platelet Count 173 T/CUMM (130-400); Red Blood Count 2.85 MC/CUMM (3.8-5.5); Red Cell Distribution Width 13.8 % (9.3-17.3); White Blood Count 6.7 T/CUMM (4-12)
[2017-07-08 04:32] LABS: Calcium 8.7 MG/DL (8.5-10.1); Magnesium 1.5 MG/DL (1.8-2.4); Osmolality,Calculated 261.9 MOS/KG (273-304); Potassium 3.8 MMOL/L (3.5-5.1)
[2017-07-08] MEDS: LEVOTHYROXINE 50 MCG TABLET PO SCH (06:07)
[2017-07-08] MEDS: MAGNESIUM OXIDE 400 MG TABLET PO SCH ×3 (08:46→20:23)
[2017-07-08] MEDS: CALCIUM (CARBONATE)/VITAMIN D 600 MG-400 UNIT TABLET PO SCH (08:46)
[2017-07-08] MEDS: FUROSEMIDE 40 MG TABLET PO SCH (08:46)
[2017-07-08] MEDS: FERROUS SULFATE ER 140 MG TABLET PO SCH (08:46)
[2017-07-08] MEDS: CYANOCOBALAMIN 500 MCG TABLET PO SCH (08:46)
[2017-07-08] MEDS: VALSARTAN/HCTZ 80-12.5 MG TABLET PO SCH (08:46)
[2017-07-08] MEDS: CARVEDILOL 25 MG TABLET PO SCH ×2 (08:47→16:34)
[2017-07-08] MEDS: FOLIC ACID 0.4 MG TABLET PO SCH (08:47)
[2017-07-08] MEDS: GABAPENTIN 100 MG CAPSULE PO SCH ×3 (08:47→20:22)
[2017-07-08] MEDS: PANTOPRAZOLE 40 MG TABLET PO SCH (08:47)
[2017-07-08] MEDS: DOCUSATE SODIUM 100 MG CAPSULE PO SCH ×2 (08:47→20:22)
[2017-07-08] MEDS: POLYETHYLENE GLYCOL POWDER 17 GM PACK PO SCH (08:47)
[2017-07-08] MEDS: ASPIRIN EC 81 MG TABLET PO SCH (08:47)
--- NOTE | 2017-07-08 11:17 | Family Practice Progress Note ---
Family Practice - PN: Subj Interval history: 07/06/17-patient is generally doing well this a.m. Pain is controlled at present. Denies any new complaints. Patient will not be able to be admitted to swing bed until Saturday. Apparently will not accept new patient on holiday. We will continue present therapy over the weekend. Patient is not able to go home so we will maintain therapy until swing bed is available 07/07/17 -patient generally is doing well. Still states she is very weak. Difficult to sit up. Encourage patient to get up as much as possible. Her a.m. labs revealed a sodium of 125 with a potassium of 3.1. I have changed her IV fluids and encouraged increased fluid intake. We will continue present treatment plan 07/08/17 -patient states that she feels some better overall still has difficulty sitting up and getting out of bed. Her a.m. sodium improved at 129. Her potassium is now back in her normal range at 3.8. Her magnesium is decreased at 1.5 and I have started on appropriate supplementation. Patient is pending swing bed placement. I felt that she had been approved for transfer in a.m. but apparently they have not accepted the patient yet. Family states that they are waiting on additional paperwork. We will continue present treatment plan Exam (Progress Note) - Constitutional Vitals: Period Temp Pulse Resp BP Sys/Pagan Pulse Ox Last 24 Hr 97.0 F-98.6 F 60-66 18-20 114-140/51-88 91-97 Results - Labs CBC & BMP: 07/08/17 03:35 07/08/17 03:35 Specialty Discharge - Follow Up or Referrals Follow up with: Dez Huynh MD [Primary Care Provider] - 07/22/17 11:00 am
[2017-07-08] MEDS: ATORVASTATIN 40 MG TABLET PO SCH (20:22)
[2017-07-09] MEDS: LEVOTHYROXINE 50 MCG TABLET PO SCH (06:17)
--- NOTE | 2017-07-09 07:51 | Discharge Summary ---
Hospital Course - Hospital Course Hospital Course: Patient 81-year-old white female with stage IV ovarian cancer who presented to the office with intractable abdominal and flank pain. Patient was admitted my services and CT the abdomen pelvis were performed which revealed no evident etiology of her discomfort. MRI of the lumbosacral spine was obtained which reveal no acute fracture. She was seen in consultation by Dr. Brian Solis ordered and MRI of her thoracic spine and she was found to have a compression deformity of T11. Patient underwent kyphoplasty on 07/04/2017 and states her pain is improved. Were trying to find her swing bed. Patient is still a bit sedated this morning. Patient has some persistent back pain will be fitted for a TLSO brace prior to transfer to swing bed. Diagnosis - Discharge Diagnosis (1) Continuous severe abdominal pain Status: Acute (2) Traumatic compression fracture of T11 thoracic vertebra Status: Acute Specialty Discharge - Follow Up or Referrals Follow up with: Dez Huynh MD [Primary Care Provider] - 07/22/17 11:00 am Discharge Plan - Discharge Data Disposition: Disch/Xfer to Snf Condition at Discharge: Stable Discharge Diet: advance to your usual diet Activity: as per physical therapy Hygiene: no restrictions Weight Bearing at Discharge: full weight bearing Contact your physician if you experience:: fever over 101 - Discharge Medications New Aspirin EC Tab 81 mg PO DAILY tablet Polyethylene Glycol Powder [Miralax] 17 gm PO DAILY Acetaminophen Tab [Tylenol Tab] 650 mg PO Q6H PRN tablet PRN Reason: Fever > 100.4 Or Headache Atorvastatin [Lipitor] 40 mg PO BEDTIME tablet Continue Magnesium 200 mg PO DAILY Furosemide Tab [Lasix Tab] 40 mg PO DAILY #30 tablet Calcium Carbonate/Vitamin D3 [Calcium 500 + Vit D Caplet] 2 tablet PO DAILY Carvedilol [Coreg] 25 mg PO BID Cyanocobalamin (Vitamin B-12) [Vitamin B-12] 1 tablet PO DAILY Folic Acid Tab 0.4 mg PO DAILY Atorvastatin [Lipitor] 40 mg PO QPM HYDROcodone/ACETAMIN 10-325 [Camas 10-325] 1 tablet PO Q6H PRN PRN Reason: Pain Valsartan/Hydrochlorothiazide [Valsartan-Hctz 160-25 mg Tab] 1 each PO DAILY Levothyroxine Tab [Synthroid Tab] 50 mcg PO DAILY Ferrous Sulfate ER Tab [Slow Fe] 140 mg PO DAILY Gabapentin Cap/Tab [Neurontin Cap/Tab] 200 mg PO TID No Action Multivitamin [Multivitamins] 1 each PO DAILY - Follow Up or Referral Follow Up: Dez Huynh MD [Primary Care Provider] - 07/22/17 11:00 am - Forms/Instructions Exam - Constitutional Vitals: Period Temp Pulse Resp BP Sys/Pagan Pulse Ox Last 24 Hr 97.0 F-98.0 F 63-72 16-20 107-140/50-76 91-95 DS: Provider Date of admission: 07/03/17 11:06 Primary care physician: Dez Huynh MD Attending physician on admission: Dez Huynh MD Consults: 07/01/17 11:45 Consult to Case Mgmt/Social Srvs [CONS] Routine Reason for Case Mgmt/Social Srvs: Discharge Planning 07/01/17 16:19 Consult to Physician [CONS] Routine Comment: Consulting Provider: Lucien Dejesus Person Notified: FROYLAN Date Notified: 07/02/17 Time Notified: 09:40 07/02/17 16:09 Consult to Physical Therapy [CONS] Routine Reason for Physical Therapy: Evaluate and Treat 07/02/17 16:21 Consult to Physician [CONS] Routine Comment: Consulting Provider: Brian Solis 07/04/17 07:57 Consult to Case Mgmt/Social Srvs [CONS] Routine Reason for Case Mgmt/Social Srvs: Swingbed/SNF/[facility] Consult Comment: Patient requests transfer to [facility]. Discharging clinician: Dez Huynh MD Expected date of discharge: 07/09/17
[2017-07-09 08:24] VITALS: BP 159/70
[2017-07-09] MEDS: CARVEDILOL 25 MG TABLET PO SCH (09:36)
[2017-07-09] MEDS: SODIUM CHLOR 0.9% KCL 20 MEQ 20 MEQ/1,000 ML BAG IV SCH (09:37)
[2017-07-09] MEDS: CALCIUM (CARBONATE)/VITAMIN D 600 MG-400 UNIT TABLET PO SCH (10:18)
[2017-07-09] MEDS: VALSARTAN/HCTZ 80-12.5 MG TABLET PO SCH (10:19)
[2017-07-09] MEDS: FERROUS SULFATE ER 140 MG TABLET PO SCH (10:19)
[2017-07-09] MEDS: CYANOCOBALAMIN 500 MCG TABLET PO SCH (10:19)
[2017-07-09] MEDS: FUROSEMIDE 40 MG TABLET PO SCH ×2 (10:20→10:28)
[2017-07-09] MEDS: FOLIC ACID 0.4 MG TABLET PO SCH (10:20)
[2017-07-09] MEDS: GABAPENTIN 100 MG CAPSULE PO SCH (10:20)
[2017-07-09] MEDS: PANTOPRAZOLE 40 MG TABLET PO SCH (10:20)
[2017-07-09] MEDS: DOCUSATE SODIUM 100 MG CAPSULE PO SCH (10:20)
[2017-07-09] MEDS: ASPIRIN EC 81 MG TABLET PO SCH (10:20)
[2017-07-09] MEDS: MAGNESIUM OXIDE 400 MG TABLET PO SCH (10:21)
[2017-07-09] MEDS: POLYETHYLENE GLYCOL POWDER 17 GM PACK PO SCH (10:22)
== END 2017-07-09 11:18 | DRG 479 ==
LOC: N.2E
PROVIDERS: ADMIT Family Medicine; ATTEND Family Medicine

== ENCOUNTER 2017-08-25 12:16 | Inpatient (IN) ==
[2017-08-25] MEDS ORDERED: ONDANSETRON 4 MG/2 ML VIAL IV STA (13:40)
[2017-08-25 13:56] LABS: Basophils % 0.4 % (0.0-0.8); Eosinophils % 0.4 % (0.00-10.9); Hematocrit 26.4 VOL% (35.7-47.0); Hemoglobin 9.1 GM/DL (12.0-16.0); Immature Granulocytes Absolute 0.08 #; Lymphocytes # 1.4 10*3/uL (1.4-4.0); Lymphocytes % 16.8 % (21.3-54.2); Mean Corpuscular HGB Conc 34.5 GM/DL (32-36); Mean Corpuscular Hemoglobin 33 PG (27-34); Mean Corpuscular Volume 94.3 FL (87-102); Mean Platelet Volume 9.1 FL (9.6-12.0); Monocytes # 0.5 10*3/uL (0.11-0.8); Monocytes % 6.7 % (1.7-12.7); Neutrophils # 6.1 10*3/uL (1.4-7.4); Neutrophils % 74.7 % (38.7-73.9); Platelet Count 281 T/CUMM (130-400); Red Cell Distribution Width 13.8 % (9.3-17.3); White Blood Count 8.1 T/CUMM (4-12)
[2017-08-25] MEDS ORDERED: ONDANSETRON 4 MG/2 ML VIAL ONE (14:09)
[2017-08-25 14:20] LABS: Albumin 2.5 G/DL (3.4-5.0); Bilirubin,Total 0.4 MG/DL (0.2-1.0); Calcium 8.9 MG/DL (8.5-10.1); Osmolality,Calculated 264.5 MOS/KG (273-304); Potassium 4.4 MMOL/L (3.5-5.1); Total Protein 6.3 G/DL (6.4-8.3)
[2017-08-25 15:01] LABS: Apearance,Urine Slightly Hazy (Clear); Bilirubin,Urine Negative (Negative); Blood, Urine Negative (Negative); Glucose,Urine (UA) Negative (Negative); Ketones,Urine Negative (Negative); Nitrite,Urine Negative (Negative); Protein,Urine Negative; RBC,Urine <1 /HPF (0-4); Squamous Epithelial Cell,Urine Occasional /HPF (0-10); Transitional Epi Cells,Urine Occasional /HPF (<1); Urine Color Yellow (Yellow); Urine Specific Gravity 1.008 (1.001-1.035); Urine Urobilinogen < 2.0 EU/DL (0.2-1.0); WBC,Urine 8 /HPF (0-6)
[2017-08-25] MEDS ORDERED: ONDANSETRON 4 MG/2 ML VIAL IV PRN (19:08)
[2017-08-25] MEDS ORDERED: ACETAMINOPHEN 325 MG TABLET PO PRN (19:08)
[2017-08-25] MEDS: SODIUM CHLORIDE 0.9% 1,000 ML IV SCH (19:59)
[2017-08-25] MEDS: ATORVASTATIN 40 MG TABLET PO SCH (23:20)
[2017-08-25] MEDS: GABAPENTIN 100 MG CAPSULE PO SCH (23:20)
[2017-08-25] MEDS: DOCUSATE SODIUM 100 MG CAPSULE PO SCH (23:21)
[2017-08-25] MEDS: CARVEDILOL 25 MG TABLET PO SCH (23:21)
[2017-08-26] MEDS: SODIUM CHLORIDE 0.9% 1,000 ML IV SCH ×2 (05:59→16:54)
[2017-08-26 07:43] LABS: Basophils % 0.4 % (0.0-0.8); Eosinophils # 0.1 10*3/uL (0.0-0.87); Hematocrit 24.8 VOL% (35.7-47.0); Hemoglobin 8.2 GM/DL (12.0-16.0); Immature Granulocytes % 1.6 %; Immature Granulocytes Absolute 0.11 #; Lymphocytes # 1.5 10*3/uL (1.4-4.0); Lymphocytes % 23.1 % (21.3-54.2); Mean Corpuscular HGB Conc 33.1 GM/DL (32-36); Mean Corpuscular Hemoglobin 32 PG (27-34); Mean Corpuscular Volume 96.5 FL (87-102); Mean Platelet Volume 9.6 FL (9.6-12.0); Monocytes # 0.6 10*3/uL (0.11-0.8); Monocytes % 8.7 % (1.7-12.7); Neutrophils # 4.3 10*3/uL (1.4-7.4); Neutrophils % 65.2 % (38.7-73.9); Platelet Count 284 T/CUMM (130-400); Red Blood Count 2.57 MC/CUMM (3.8-5.5); Red Cell Distribution Width 13.9 % (9.3-17.3); White Blood Count 6.7 T/CUMM (4-12)
[2017-08-26 08:07] LABS: Calcium 8.3 MG/DL (8.5-10.1); Potassium 4.5 MMOL/L (3.5-5.1)
[2017-08-26 08:18] LABS: Free T4 (Free Thyroxine) 1.3 NG/DL (0.76-1.46); Thyroid Stimulating Hormone 4.51 uIU/ml (0.358-3.74)
[2017-08-26] MEDS: FOLIC ACID 0.4 MG TABLET PO SCH (10:25)
[2017-08-26] MEDS: MAGNESIUM OXIDE 400 MG TABLET PO SCH (10:25)
[2017-08-26] MEDS: FERROUS SULFATE ER 140 MG TABLET PO SCH (10:26)
[2017-08-26] MEDS: GABAPENTIN 100 MG CAPSULE PO SCH ×3 (10:27→21:16)
[2017-08-26] MEDS: PANTOPRAZOLE 40 MG TABLET PO SCH (10:27)
[2017-08-26] MEDS: CARVEDILOL 25 MG TABLET PO SCH ×2 (10:28→21:16)
[2017-08-26] MEDS: MULTIVITAMIN (CENTRUM) TABLET PO SCH (10:28)
[2017-08-26] MEDS: DOCUSATE SODIUM 100 MG CAPSULE PO SCH ×3 (10:28→21:17)
[2017-08-26] MEDS: LEVOTHYROXINE 50 MCG TABLET PO SCH (10:28)
[2017-08-26] MEDS: ATORVASTATIN 40 MG TABLET PO SCH (21:15)
[2017-08-27] MEDS: SODIUM CHLORIDE 0.9% 1,000 ML IV SCH ×3 (01:29→15:03)
[2017-08-27 06:03] LABS: Basophils % 0.2 % (0.0-0.8); Eosinophils # 0.1 10*3/uL (0.0-0.87); Eosinophils % 2.1 % (0.00-10.9); Hematocrit 23.7 VOL% (35.7-47.0); Hemoglobin 7.8 GM/DL (12.0-16.0); Immature Granulocytes % 1.3 %; Immature Granulocytes Absolute 0.08 #; Lymphocytes # 1.5 10*3/uL (1.4-4.0); Lymphocytes % 24.3 % (21.3-54.2); Mean Corpuscular HGB Conc 32.9 GM/DL (32-36); Mean Corpuscular Hemoglobin 32 PG (27-34); Mean Corpuscular Volume 96.3 FL (87-102); Mean Platelet Volume 9.3 FL (9.6-12.0); Monocytes # 0.5 10*3/uL (0.11-0.8); Monocytes % 8.7 % (1.7-12.7); Neutrophils # 3.9 10*3/uL (1.4-7.4); Neutrophils % 63.4 % (38.7-73.9); Platelet Count 272 T/CUMM (130-400); Red Blood Count 2.46 MC/CUMM (3.8-5.5); Red Cell Distribution Width 13.8 % (9.3-17.3); White Blood Count 6.1 T/CUMM (4-12)
[2017-08-27 06:34] LABS: Osmolality,Calculated 274.5 MOS/KG (273-304); Potassium 4.1 MMOL/L (3.5-5.1)
[2017-08-27] MEDS: LEVOTHYROXINE 50 MCG TABLET PO SCH (06:34)
[2017-08-27 06:42] LABS: Free T4 (Free Thyroxine) 1.27 NG/DL (0.76-1.46); Thyroid Stimulating Hormone 2.65 uIU/ml (0.358-3.74)
[2017-08-27] MEDS: DOCUSATE SODIUM 100 MG CAPSULE PO SCH ×2 (09:25→21:38)
[2017-08-27] MEDS: GABAPENTIN 100 MG CAPSULE PO SCH ×3 (09:25→21:41)
[2017-08-27] MEDS: FOLIC ACID 0.4 MG TABLET PO SCH (09:26)
[2017-08-27] MEDS: MULTIVITAMIN (CENTRUM) TABLET PO SCH (09:26)
[2017-08-27] MEDS: CARVEDILOL 25 MG TABLET PO SCH ×2 (09:26→21:41)
[2017-08-27] MEDS: PANTOPRAZOLE 40 MG TABLET PO SCH (09:27)
[2017-08-27] MEDS: FERROUS SULFATE ER 140 MG TABLET PO SCH (09:27)
[2017-08-27] MEDS: MAGNESIUM OXIDE 400 MG TABLET PO SCH (09:27)
[2017-08-27] MEDS ORDERED: SODIUM CHLORIDE 0.9% 250 ML IV PRN (11:08)
[2017-08-27] MEDS: ATORVASTATIN 40 MG TABLET PO SCH (21:41)
[2017-08-28 04:41] LABS: Basophils % 0.4 % (0.0-0.8); Eosinophils # 0.2 10*3/uL (0.0-0.87); Hematocrit 31.6 VOL% (35.7-47.0); Hemoglobin 10.8 GM/DL (12.0-16.0); Immature Granulocytes % 1.4 %; Immature Granulocytes Absolute 0.11 #; Lymphocytes # 1.9 10*3/uL (1.4-4.0); Lymphocytes % 23.8 % (21.3-54.2); Mean Corpuscular HGB Conc 34.2 GM/DL (32-36); Mean Corpuscular Hemoglobin 31 PG (27-34); Mean Platelet Volume 9.5 FL (9.6-12.0); Monocytes # 0.7 10*3/uL (0.11-0.8); Monocytes % 8.5 % (1.7-12.7); Neutrophils % 63.9 % (38.7-73.9); Platelet Count 259 T/CUMM (130-400); Red Blood Count 3.51 MC/CUMM (3.8-5.5); Red Cell Distribution Width 17.7 % (9.3-17.3); White Blood Count 7.9 T/CUMM (4-12)
[2017-08-28 05:04] LABS: Calcium 8.2 MG/DL (8.5-10.1); Magnesium 1.4 MG/DL (1.8-2.4); Osmolality,Calculated 274.5 MOS/KG (273-304); Potassium 3.9 MMOL/L (3.5-5.1)
[2017-08-28] MEDS ORDERED: diphenhydrAMINE 50 MG/1 ML VIAL IV ONE (07:41)
[2017-08-28] MEDS ORDERED: FAMOTIDINE 20 MG/2 ML VIAL IV ONE (07:41)
[2017-08-28] MEDS ORDERED: DEXAMETHASONE INJ 10 MG in SODIUM CHLORIDE 0.9% 50 ML IV ONE (08:00)
[2017-08-28] MEDS ORDERED: GRANISETRON 1 MG/1 ML VIAL IV SCH (08:00)
[2017-08-28] MEDS: CARVEDILOL 25 MG TABLET PO SCH ×2 (09:46→20:44)
[2017-08-28] MEDS: FOLIC ACID 0.4 MG TABLET PO SCH (09:46)
[2017-08-28] MEDS: MULTIVITAMIN (CENTRUM) TABLET PO SCH (09:46)
[2017-08-28] MEDS: PANTOPRAZOLE 40 MG TABLET PO SCH (09:46)
[2017-08-28] MEDS: DOCUSATE SODIUM 100 MG CAPSULE PO SCH ×2 (09:46→20:43)
[2017-08-28] MEDS: LEVOTHYROXINE 50 MCG TABLET PO SCH (09:46)
[2017-08-28] MEDS: GABAPENTIN 100 MG CAPSULE PO SCH ×3 (09:46→20:43)
[2017-08-28] MEDS: MAGNESIUM OXIDE 400 MG TABLET PO SCH (09:46)
[2017-08-28] MEDS: FERROUS SULFATE ER 140 MG TABLET PO SCH (10:30)
[2017-08-28] MEDS ORDERED: MAGNESIUM OXIDE 400 MG TABLET PO ONE (13:23)
[2017-08-28] MEDS: ATORVASTATIN 40 MG TABLET PO SCH (20:43)
[2017-08-28] MEDS ORDERED: chlorproMAZINE 25 MG TABLET PO PRN (23:41)
[2017-08-28] MEDS ORDERED: BENZTROPINE 2 MG/2 ML AMP IV PRN (23:41)
[2017-08-28] MEDS ORDERED: MYLANTA/LIDO VISC 2:1 300 ML BOTTLE SWISH/SWAL PRN (23:41)
[2017-08-28] MEDS ORDERED: MYLANTA/LIDO VISC 2:1 300 ML BOTTLE SWISH/SPIT PRN (23:41)
[2017-08-28] MEDS ORDERED: diphenhydrAMINE CAP 25 MG CAPSULE PO PRN (23:41)
[2017-08-28] MEDS ORDERED: traMADol 50 MG TABLET PO PRN (23:41)
[2017-08-28] MEDS ORDERED: ALUMINUM/MAGNES/SIMETH MAX STR 30 ML UDCUP PO PRN (23:41)
[2017-08-28] MEDS ORDERED: PROMETHAZINE INJ 25 MG in SODIUM CHLORIDE 0.9% 50 ML IV PRN (23:41)
[2017-08-28] MEDS ORDERED: MAGNESIUM HYDROXIDE SUSP 30 ML UDCUP PO PRN (23:41)
[2017-08-28] MEDS ORDERED: TEMAZEPAM 7.5 MG CAPSULE PO PRN (23:41)
[2017-08-28] MEDS ORDERED: LACTULOSE 20 GM/30 ML UDCUP PO PRN (23:41)
[2017-08-28] MEDS ORDERED: ONDANSETRON 4 MG/2 ML VIAL IV PRN (23:41)
[2017-08-28] MEDS ORDERED: LOPERAMIDE 2 MG CAPSULE PO PRN ×2 (23:41)
[2017-08-28] MEDS ORDERED: guaiFENesin 200 MG/10 ML UDCUP PO PRN (23:41)
[2017-08-28] MEDS ORDERED: ACETAMINOPHEN 325 MG TABLET PO PRN (23:41)
[2017-08-28] MEDS ORDERED: ALPRAZolam 0.25 MG TABLET PO PRN (23:41)
[2017-08-28] MEDS ORDERED: chlorproMAZINE INJ 25 MG in SODIUM CHLORIDE 0.9% 100 ML IV PRN (23:41)
[2017-08-28] MEDS ORDERED: chlorproMAZINE INJ 50 MG in SODIUM CHLORIDE 0.9% 100 ML IV PRN (23:41)
[2017-08-29] MEDS: SODIUM CHLORIDE 0.9% 1,000 ML IV SCH ×2 (00:12→09:29)
[2017-08-29] MEDS: LEVOTHYROXINE 50 MCG TABLET PO SCH (06:32)
[2017-08-29 08:11] LABS: Apearance,Urine CLEAR (Clear); Bilirubin,Urine Negative (Negative); Blood, Urine Negative (Negative); Glucose,Urine (UA) 50 mg/dL (Negative); Ketones,Urine Negative (Negative); Nitrite,Urine Negative (Negative); Protein,Urine Negative; RBC,Urine <1 /HPF (0-4); Urine Color Straw (Yellow); Urine Specific Gravity 1.006 (1.001-1.035); Urine Urobilinogen < 2.0 EU/DL (0.2-1.0); WBC,Urine <1 /HPF (0-6)
[2017-08-29] MEDS: MULTIVITAMIN (CENTRUM) TABLET PO SCH (08:48)
[2017-08-29] MEDS: FOLIC ACID 0.4 MG TABLET PO SCH (08:49)
[2017-08-29] MEDS: GABAPENTIN 100 MG CAPSULE PO SCH (08:49)
[2017-08-29] MEDS: FERROUS SULFATE ER 140 MG TABLET PO SCH (08:49)
[2017-08-29] MEDS: CARVEDILOL 25 MG TABLET PO SCH (08:50)
[2017-08-29] MEDS: DOCUSATE SODIUM 100 MG CAPSULE PO SCH (08:50)
[2017-08-29] MEDS: PANTOPRAZOLE 40 MG TABLET PO SCH (08:51)
[2017-08-29] MEDS ORDERED: MAGNESIUM OXIDE 400 MG TABLET PO SCH (09:00)
[2017-08-29] MEDS ORDERED: HEPARIN LOCK FLUSH 500 UNIT/5 ML SYRINGE IV ONE (10:02)
[2017-08-29 11:13] VITALS: BP 184/79
== END 2017-08-29 13:05 | disposition home or self-care (01) | DRG 755 ==
LOC: N.ED 12:16 → N.2E 17:14 → N.4E 08-27 11:03
PROVIDERS: ADMIT Family Medicine; ATTEND Family Medicine

== ENCOUNTER 2017-11-14 10:09 | Inpatient (IN) ==
[2017-11-14 10:31] LABS: Apearance,Urine CLEAR (Clear); Bilirubin,Urine Negative (Negative); Blood, Urine Negative (Negative); Glucose,Urine (UA) Negative (Negative); Ketones,Urine Negative (Negative); Nitrite,Urine Negative (Negative); Protein,Urine Negative; Urine Color Straw (Yellow); Urine Specific Gravity 1.005 (1.001-1.035); Urine Urobilinogen < 2.0 EU/DL (0.2-1.0); WBC,Urine <1 /HPF (0-6)
[2017-11-14] MEDS ORDERED: ONDANSETRON 4 MG/2 ML VIAL IV STA (11:15)
[2017-11-14] MEDS ORDERED: ONDANSETRON 4 MG/2 ML VIAL ONE (11:16)
[2017-11-14] MEDS ORDERED: traMADol 50 MG TABLET PO PRN (14:54)
[2017-11-14] MEDS ORDERED: MORPHINE 2 MG/1 ML SYRINGE IV PRN (14:54)
[2017-11-14] MEDS ORDERED: ACETAMINOPHEN 325 MG TABLET PO PRN (14:54)
[2017-11-14] MEDS: SODIUM CHLORIDE 0.45% 1,000 ML IV SCH (15:27)
[2017-11-14] MEDS: HYDROmorphone 2 MG/1 ML VIAL IV PRN (15:28)
[2017-11-14] MEDS: GABAPENTIN 100 MG CAPSULE PO SCH ×2 (15:28→21:32)
[2017-11-14] MEDS: PROMETHAZINE 25 MG TABLET PO PRN (15:31)
[2017-11-14] MEDS: CARVEDILOL 25 MG TABLET PO SCH (17:26)
[2017-11-14 18:07] LABS: Basophils % 0.3 % (0.0-0.8); Eosinophils # 0.2 10*3/uL (0.0-0.87); Hematocrit 26.8 VOL% (35.7-47.0); Hemoglobin 8.9 GM/DL (12.0-16.0); Immature Granulocytes Absolute 0.04 #; Lymphocytes # 1.5 10*3/uL (1.4-4.0); Lymphocytes % 39.7 % (21.3-54.2); Mean Corpuscular HGB Conc 33.2 GM/DL (32-36); Mean Corpuscular Hemoglobin 32 PG (27-34); Mean Corpuscular Volume 96.4 FL (87-102); Mean Platelet Volume 9.8 FL (9.6-12.0); Monocytes # 0.2 10*3/uL (0.11-0.8); Monocytes % 5.7 % (1.7-12.7); Neutrophils # 1.9 10*3/uL (1.4-7.4); Neutrophils % 48.3 % (38.7-73.9); Platelet Count 199 T/CUMM (130-400); Red Blood Count 2.78 MC/CUMM (3.8-5.5); Red Cell Distribution Width 18.9 % (9.3-17.3); White Blood Count 3.8 T/CUMM (4-12)
[2017-11-14 18:29] LABS: Albumin 3.2 G/DL (3.4-5.0); Bilirubin,Total 0.4 MG/DL (0.2-1.0); Calcium 9.1 MG/DL (8.5-10.1); Osmolality,Calculated 261.8 MOS/KG (273-304); Potassium 4.4 MMOL/L (3.5-5.1); Total Protein 6.4 G/DL (6.4-8.3)
[2017-11-14] MEDS ORDERED: DOCUSATE SODIUM 100 MG CAPSULE PO SCH (21:00)
[2017-11-14] MEDS: POTASSIUM GLUCONATE 500 MG TABLET PO SCH (21:31)
[2017-11-14] MEDS: MAGNESIUM OXIDE 400 MG TABLET PO SCH (21:32)
[2017-11-14] MEDS: MULTIVITAMIN (CENTRUM) TABLET PO SCH (21:32)
[2017-11-14] MEDS: ATORVASTATIN 40 MG TABLET PO SCH (21:33)
[2017-11-14] MEDS: DOCUSATE SODIUM 100 MG CAPSULE PO SCH (21:33)
[2017-11-15] MEDS: SODIUM CHLORIDE 0.45% 1,000 ML IV SCH ×2 (06:30→19:59)
[2017-11-15] MEDS: CYANOCOBALAMIN 500 MCG TABLET PO SCH (09:55)
[2017-11-15] MEDS: CARVEDILOL 25 MG TABLET PO SCH ×2 (09:55→16:15)
[2017-11-15] MEDS: DOCUSATE SODIUM 100 MG CAPSULE PO SCH ×2 (09:55→21:07)
[2017-11-15] MEDS: GABAPENTIN 100 MG CAPSULE PO SCH ×3 (09:55→21:07)
[2017-11-15] MEDS: PANTOPRAZOLE 40 MG TABLET PO SCH (09:55)
[2017-11-15] MEDS: VALSARTAN/HCTZ 160-12.5 MG TABLET PO SCH (09:56)
[2017-11-15] MEDS: MULTIVITAMIN (CENTRUM) TABLET PO SCH (21:07)
[2017-11-15] MEDS: MAGNESIUM OXIDE 400 MG TABLET PO SCH (21:07)
[2017-11-15] MEDS: ATORVASTATIN 40 MG TABLET PO SCH (21:08)
[2017-11-15] MEDS: POTASSIUM GLUCONATE 500 MG TABLET PO SCH (21:08)
[2017-11-16] MEDS: GABAPENTIN 100 MG CAPSULE PO SCH ×3 (10:43→21:04)
[2017-11-16] MEDS: CARVEDILOL 25 MG TABLET PO SCH ×2 (10:43→17:21)
[2017-11-16] MEDS: DOCUSATE SODIUM 100 MG CAPSULE PO SCH ×2 (10:43→21:04)
[2017-11-16] MEDS: PANTOPRAZOLE 40 MG TABLET PO SCH (10:44)
[2017-11-16] MEDS: CYANOCOBALAMIN 500 MCG TABLET PO SCH (10:44)
[2017-11-16] MEDS: VALSARTAN/HCTZ 160-12.5 MG TABLET PO SCH (10:44)
[2017-11-16] MEDS: SODIUM CHLORIDE 0.45% 1,000 ML IV SCH ×2 (12:28→21:08)
[2017-11-16] MEDS: POLYETHYLENE GLYCOL POWDER 17 GM PACK PO SCH (12:28)
[2017-11-16] MEDS: ATORVASTATIN 40 MG TABLET PO SCH (21:03)
[2017-11-16] MEDS: MAGNESIUM OXIDE 400 MG TABLET PO SCH (21:04)
[2017-11-16] MEDS: MULTIVITAMIN (CENTRUM) TABLET PO SCH (21:04)
[2017-11-16] MEDS: POTASSIUM GLUCONATE 500 MG TABLET PO SCH (21:07)
[2017-11-17] MEDS: SODIUM CHLORIDE 0.45% 1,000 ML IV SCH ×2 (02:05→13:13)
[2017-11-17] MEDS: CARVEDILOL 25 MG TABLET PO SCH ×2 (13:11→17:48)
[2017-11-17] MEDS: DESITIN 4OZ/NYSTATIN 15 GRAM MIXTURE PASTE TOP SCH ×2 (13:12→20:34)
[2017-11-17] MEDS: POLYETHYLENE GLYCOL POWDER 17 GM PACK PO SCH (13:12)
[2017-11-17] MEDS: CYANOCOBALAMIN 500 MCG TABLET PO SCH (13:12)
[2017-11-17] MEDS: GABAPENTIN 100 MG CAPSULE PO SCH ×3 (13:12→20:17)
[2017-11-17] MEDS: PANTOPRAZOLE 40 MG TABLET PO SCH (13:12)
[2017-11-17] MEDS: DOCUSATE SODIUM 100 MG CAPSULE PO SCH ×2 (13:12→20:17)
[2017-11-17] MEDS: VALSARTAN/HCTZ 160-12.5 MG TABLET PO SCH (13:12)
[2017-11-17] MEDS: PROMETHAZINE 25 MG TABLET PO PRN (13:13)
[2017-11-17] MEDS: ACETAMINOPHEN 325 MG TABLET PO PRN (13:13)
[2017-11-17] MEDS: HYDROmorphone 2 MG/1 ML VIAL IV PRN ×2 (13:13→20:15)
[2017-11-17] MEDS: ATORVASTATIN 40 MG TABLET PO SCH (20:17)
[2017-11-17] MEDS: MAGNESIUM OXIDE 400 MG TABLET PO SCH (20:17)
[2017-11-17] MEDS: MULTIVITAMIN (CENTRUM) TABLET PO SCH (20:17)
[2017-11-17] MEDS: ONDANSETRON 4 MG/2 ML VIAL IV PRN (20:25)
[2017-11-17] MEDS: POTASSIUM GLUCONATE 500 MG TABLET PO SCH (20:34)
[2017-11-18] MEDS: SODIUM CHLORIDE 0.45% 1,000 ML IV SCH ×2 (05:12→22:19)
[2017-11-18] MEDS: HYDROmorphone 2 MG/1 ML VIAL IV PRN ×3 (05:13→15:26)
[2017-11-18] MEDS: ONDANSETRON 4 MG/2 ML VIAL IV PRN ×2 (05:13→15:27)
[2017-11-18] MEDS: CYANOCOBALAMIN 500 MCG TABLET PO SCH (09:03)
[2017-11-18] MEDS: FUROSEMIDE 40 MG TABLET PO PRN (09:03)
[2017-11-18] MEDS: VALSARTAN/HCTZ 160-12.5 MG TABLET PO SCH (09:04)
[2017-11-18] MEDS: CARVEDILOL 25 MG TABLET PO SCH ×2 (09:04→18:32)
[2017-11-18] MEDS: DOCUSATE SODIUM 100 MG CAPSULE PO SCH ×2 (09:04→22:14)
[2017-11-18] MEDS: PANTOPRAZOLE 40 MG TABLET PO SCH (09:04)
[2017-11-18] MEDS: DESITIN 4OZ/NYSTATIN 15 GRAM MIXTURE PASTE TOP SCH ×2 (09:04→22:23)
[2017-11-18] MEDS: GABAPENTIN 100 MG CAPSULE PO SCH ×3 (10:12→22:13)
[2017-11-18] MEDS ORDERED: LACTATED RINGERS 1,000 ML IV SCH (11:30)
[2017-11-18] MEDS ORDERED: fentaNYL 100 MCG/2 ML VIAL ONE (12:38)
[2017-11-18] MEDS ORDERED: MIDAZOLAM 2 MG/2 ML VIAL ONE (12:38)
[2017-11-18] MEDS: POLYETHYLENE GLYCOL POWDER 17 GM PACK PO SCH (13:31)
[2017-11-18] MEDS: MULTIVITAMIN (CENTRUM) TABLET PO SCH (22:13)
[2017-11-18] MEDS: MAGNESIUM OXIDE 400 MG TABLET PO SCH (22:14)
[2017-11-18] MEDS: POTASSIUM GLUCONATE 500 MG TABLET PO SCH (22:14)
[2017-11-18] MEDS: ATORVASTATIN 40 MG TABLET PO SCH (22:14)
[2017-11-19] MEDS: CARVEDILOL 25 MG TABLET PO SCH ×2 (08:39→17:19)
[2017-11-19] MEDS: POLYETHYLENE GLYCOL POWDER 17 GM PACK PO SCH (08:39)
[2017-11-19] MEDS: DOCUSATE SODIUM 100 MG CAPSULE PO SCH ×2 (08:39→21:12)
[2017-11-19] MEDS: CYANOCOBALAMIN 500 MCG TABLET PO SCH (08:39)
[2017-11-19] MEDS: PANTOPRAZOLE 40 MG TABLET PO SCH (08:40)
[2017-11-19] MEDS: VALSARTAN/HCTZ 160-12.5 MG TABLET PO SCH (08:40)
[2017-11-19] MEDS: FUROSEMIDE 40 MG TABLET PO PRN (08:41)
[2017-11-19] MEDS: GABAPENTIN 100 MG CAPSULE PO SCH ×3 (08:41→21:12)
[2017-11-19] MEDS: HYDROmorphone 2 MG/1 ML VIAL IV PRN ×2 (08:43→13:13)
[2017-11-19] MEDS: DESITIN 4OZ/NYSTATIN 15 GRAM MIXTURE PASTE TOP SCH ×2 (08:45→21:23)
[2017-11-19] MEDS ORDERED: TUBERCULIN SKIN TEST 0.1 ML SYRINGE INTRADERM ONE (12:00)
[2017-11-19] MEDS: SODIUM CHLORIDE 0.45% 1,000 ML IV SCH (13:12)
[2017-11-19] MEDS: ONDANSETRON 4 MG/2 ML VIAL IV PRN (17:51)
[2017-11-19] MEDS: POTASSIUM GLUCONATE 500 MG TABLET PO SCH (21:12)
[2017-11-19] MEDS: MAGNESIUM OXIDE 400 MG TABLET PO SCH (21:12)
[2017-11-19] MEDS: MULTIVITAMIN (CENTRUM) TABLET PO SCH (21:12)
[2017-11-19] MEDS: ATORVASTATIN 40 MG TABLET PO SCH (21:12)
[2017-11-20] MEDS: SODIUM CHLORIDE 0.45% 1,000 ML IV SCH ×2 (00:14→21:40)
[2017-11-20] MEDS: CYANOCOBALAMIN 500 MCG TABLET PO SCH (08:53)
[2017-11-20] MEDS: DOCUSATE SODIUM 100 MG CAPSULE PO SCH ×2 (08:54→20:07)
[2017-11-20] MEDS: GABAPENTIN 100 MG CAPSULE PO SCH ×3 (08:54→20:07)
[2017-11-20] MEDS: VALSARTAN/HCTZ 160-12.5 MG TABLET PO SCH (08:54)
[2017-11-20] MEDS: CARVEDILOL 25 MG TABLET PO SCH ×2 (08:54→16:09)
[2017-11-20] MEDS: PANTOPRAZOLE 40 MG TABLET PO SCH (08:56)
[2017-11-20] MEDS: POLYETHYLENE GLYCOL POWDER 17 GM PACK PO SCH (08:56)
[2017-11-20] MEDS: DESITIN 4OZ/NYSTATIN 15 GRAM MIXTURE PASTE TOP SCH ×2 (09:03→20:10)
[2017-11-20] MEDS: ONDANSETRON 4 MG/2 ML VIAL IV PRN (11:49)
[2017-11-20] MEDS: HYDROmorphone 2 MG/1 ML VIAL IV PRN (11:59)
[2017-11-20] MEDS: MAGNESIUM OXIDE 400 MG TABLET PO SCH (20:07)
[2017-11-20] MEDS: ACETAMINOPHEN 325 MG TABLET PO PRN (20:07)
[2017-11-20] MEDS: ATORVASTATIN 40 MG TABLET PO SCH (20:07)
[2017-11-20] MEDS: POTASSIUM GLUCONATE 500 MG TABLET PO SCH (20:08)
[2017-11-20] MEDS: MULTIVITAMIN (CENTRUM) TABLET PO SCH (20:08)
[2017-11-20] MEDS ORDERED: MAGNESIUM HYDROXIDE SUSP 30 ML UDCUP PO PRN (21:09)
[2017-11-21] MEDS: GABAPENTIN 100 MG CAPSULE PO SCH (08:05)
[2017-11-21] MEDS: DOCUSATE SODIUM 100 MG CAPSULE PO SCH (08:05)
[2017-11-21] MEDS: CYANOCOBALAMIN 500 MCG TABLET PO SCH (08:05)
[2017-11-21] MEDS: CARVEDILOL 25 MG TABLET PO SCH (08:05)
[2017-11-21] MEDS: VALSARTAN/HCTZ 160-12.5 MG TABLET PO SCH (08:05)
[2017-11-21] MEDS: PANTOPRAZOLE 40 MG TABLET PO SCH (08:06)
[2017-11-21] MEDS: POLYETHYLENE GLYCOL POWDER 17 GM PACK PO SCH (08:06)
[2017-11-21 08:07] VITALS: BP 160/75
[2017-11-21] MEDS: DESITIN 4OZ/NYSTATIN 15 GRAM MIXTURE PASTE TOP SCH (08:07)
[2017-11-21] MEDS: HYDROmorphone 2 MG/1 ML VIAL IV PRN (08:28)
== END 2017-11-21 09:05 | DRG 478 ==
LOC: EDUNIT# → EDBD → N.ED 10:09 → N.EDINP 10:09 → N.2E 12:59
PROVIDERS: ADMIT Family Medicine; ATTEND Family Medicine

== ENCOUNTER 2018-06-09 08:32 | Inpatient (IN) ==
[2018-06-09 09:33] LABS: Basophils # 0.1 10*3/uL (0.0-0.2); Eosinophils # 0.1 10*3/uL (0.0-0.87); Eosinophils % 0.7 % (0.00-10.9); Hematocrit 28.8 VOL% (35.7-47.0); Hemoglobin 9.5 GM/DL (12.0-16.0); Immature Granulocytes % 4.7 %; Immature Granulocytes Absolute 0.33 #; Lymphocytes # 1.2 10*3/uL (1.4-4.0); Lymphocytes % 16.2 % (21.3-54.2); Mean Corpuscular Hemoglobin 32 PG (27-34); Mean Corpuscular Volume 98.3 FL (87-102); Mean Platelet Volume 12.6 FL (9.6-12.0); Monocytes # 0.5 10*3/uL (0.11-0.8); Monocytes % 6.9 % (1.7-12.7); Neutrophils % 70.5 % (38.7-73.9); Red Blood Count 2.93 MC/CUMM (3.8-5.5); Red Cell Distribution Width 20.8 % (9.3-17.3); White Blood Count 7.1 T/CUMM (4-12)
[2018-06-09 09:35] LABS: Platelet Count 37 T/CUMM (130-400)
[2018-06-09 09:41] LABS: Anisocytosis 1+; Band Neutrophils 32 % (0-10); Lymphocytes 20 % (20-55); Macrocytosis 1+; Metamyelocytes 2 %; Platelet Estimate Decreased; Poikilocytosis Slight; Segmented Neutrophils 46 % (50-85); Total Cells Counted 100
[2018-06-09 09:50] LABS: Albumin 3.2 G/DL (3.4-5.0); Calcium 8.8 MG/DL (8.5-10.1); Osmolality,Calculated 275.7 MOS/KG (273-304); Total Protein 6.5 G/DL (6.4-8.3)
[2018-06-09] MEDS ORDERED: MAGNESIUM SULF RIDER 2 GM in PREMIX 1 EACH IV STA (09:54)
[2018-06-09] MEDS ORDERED: ONDANSETRON 4 MG/2 ML VIAL IV STA (10:30)
[2018-06-09] MEDS ORDERED: SODIUM CHLORIDE 0.9% 500 ML IV STA (10:30)
[2018-06-09 11:15] LABS: Apearance,Urine CLEAR (Clear); Bilirubin,Urine Negative (Negative); Blood, Urine Negative (Negative); Glucose,Urine (UA) Negative (Negative); Ketones,Urine Negative (Negative); Nitrite,Urine Negative (Negative); Protein,Urine Negative; Urine Color Yellow (Yellow); Urine Specific Gravity 1.013 (1.001-1.035); WBC,Urine <1 /HPF (0-6)
[2018-06-09] MEDS ORDERED: ONDANSETRON 4 MG/2 ML VIAL IV PRN (13:11)
[2018-06-09] MEDS ORDERED: ACETAMINOPHEN 325 MG TABLET PO PRN (13:11)
[2018-06-09] MEDS: SODIUM CHLORIDE 0.9% 1,000 ML IV SCH (14:20)
[2018-06-09 19:14] LABS: Apearance,Urine CLEAR (Clear); Bilirubin,Urine Negative (Negative); Blood, Urine Negative (Negative); Glucose,Urine (UA) Negative (Negative); Ketones,Urine Negative (Negative); Nitrite,Urine Negative (Negative); Protein,Urine Negative; Squamous Epithelial Cell,Urine Occasional /HPF (0-10); Urine Color Straw (Yellow); WBC,Urine 8 /HPF (0-6)
[2018-06-09] MEDS: DOCUSATE SODIUM 100 MG CAPSULE PO SCH (20:31)
[2018-06-09] MEDS ORDERED: POTASSIUM CHLORIDE 99 MG PO SCH (21:00)
[2018-06-09] MEDS: CARVEDILOL 25 MG TABLET PO SCH (21:32)
[2018-06-09] MEDS: GABAPENTIN 100 MG CAPSULE PO SCH (21:32)
[2018-06-10 05:16] LABS: Basophils # 0.1 10*3/uL (0.0-0.2); Basophils % 0.9 % (0.0-0.8); Eosinophils # 0.1 10*3/uL (0.0-0.87); Eosinophils % 1.2 % (0.00-10.9); Hematocrit 24.3 VOL% (35.7-47.0); Hemoglobin 8.2 GM/DL (12.0-16.0); Immature Granulocytes % 7.3 %; Immature Granulocytes Absolute 0.43 #; Lymphocytes # 1.2 10*3/uL (1.4-4.0); Lymphocytes % 20.6 % (21.3-54.2); Mean Corpuscular HGB Conc 33.7 GM/DL (32-36); Mean Corpuscular Hemoglobin 33 PG (27-34); Mean Corpuscular Volume 96.8 FL (87-102); Mean Platelet Volume 13.4 FL (9.6-12.0); Monocytes # 0.4 10*3/uL (0.11-0.8); Monocytes % 7.3 % (1.7-12.7); NRBC # 0.02 10*3/uL; Neutrophils # 3.7 10*3/uL (1.4-7.4); Neutrophils % 62.7 % (38.7-73.9); Red Blood Count 2.51 MC/CUMM (3.8-5.5); Red Cell Distribution Width 20.8 % (9.3-17.3); White Blood Count 5.9 T/CUMM (4-12)
[2018-06-10 05:20] LABS: Platelet Count 37 T/CUMM (130-400)
[2018-06-10 05:44] LABS: Albumin 2.6 G/DL (3.4-5.0); Bilirubin,Total 0.6 MG/DL (0.2-1.0); Calcium 8.2 MG/DL (8.5-10.1); Osmolality,Calculated 275.5 MOS/KG (273-304); Potassium 3.6 MMOL/L (3.5-5.1); Risk Ratio 3.04; Total Protein 5.5 G/DL (6.4-8.3)
[2018-06-10 05:55] LABS: Band Neutrophils 2 % (0-10); Eosinophils 1 % (0-10); Lymphocytes 21 % (20-55); Segmented Neutrophils 68 % (50-85); Total Cells Counted 100
[2018-06-10 05:56] LABS: Hypochromasia 1+; Ovalocytes Slight; Platelet Estimate Decreased
[2018-06-10] MEDS ORDERED: SODIUM CHLORIDE 0.9% 1,000 ML IV PRN (07:50)
[2018-06-10] MEDS: GABAPENTIN 100 MG CAPSULE PO SCH ×3 (08:42→20:42)
[2018-06-10] MEDS: VALSARTAN/HCTZ 160-12.5 MG TABLET PO SCH (08:43)
[2018-06-10] MEDS: CARVEDILOL 25 MG TABLET PO SCH ×2 (08:43→20:42)
[2018-06-10] MEDS: PANTOPRAZOLE 40 MG VIAL IV SCH (08:43)
[2018-06-10] MEDS: DOCUSATE SODIUM 100 MG CAPSULE PO SCH ×2 (08:43→20:42)
[2018-06-10] MEDS: SODIUM CHLORIDE 0.9% 1,000 ML IV SCH ×3 (22:56→23:03)
[2018-06-11 02:57] LABS: Basophils % 0.6 % (0.0-0.8); Eosinophils # 0.1 10*3/uL (0.0-0.87); Eosinophils % 1.4 % (0.00-10.9); Hematocrit 29.1 VOL% (35.7-47.0); Hemoglobin 9.9 GM/DL (12.0-16.0); Immature Granulocytes % 2.2 %; Immature Granulocytes Absolute 0.14 #; Lymphocytes # 1.6 10*3/uL (1.4-4.0); Lymphocytes % 24.4 % (21.3-54.2); Mean Corpuscular Hemoglobin 32 PG (27-34); Mean Corpuscular Volume 94.5 FL (87-102); Mean Platelet Volume 13.1 FL (9.6-12.0); Monocytes # 0.4 10*3/uL (0.11-0.8); Monocytes % 5.8 % (1.7-12.7); Neutrophils # 4.3 10*3/uL (1.4-7.4); Neutrophils % 65.6 % (38.7-73.9); Red Blood Count 3.08 MC/CUMM (3.8-5.5); Red Cell Distribution Width 20.4 % (9.3-17.3); White Blood Count 6.5 T/CUMM (4-12)
[2018-06-11 03:17] LABS: Albumin 2.5 G/DL (3.4-5.0); Bilirubin,Total 0.8 MG/DL (0.2-1.0); Calcium 7.7 MG/DL (8.5-10.1); Osmolality,Calculated 277.4 MOS/KG (273-304); Potassium 3.4 MMOL/L (3.5-5.1); Total Protein 5.4 G/DL (6.4-8.3)
[2018-06-11 03:18] LABS: Platelet Count 33 T/CUMM (130-400)
[2018-06-11 04:29] LABS: Macrocytosis 1+; Platelet Estimate Decreased
[2018-06-11] MEDS ORDERED: POLYETHYLENE GLYCOL POWDER 17 GM PACK PO PRN ×2 (06:27)
[2018-06-11] MEDS ORDERED: FUROSEMIDE 40 MG TABLET PO PRN (06:27)
[2018-06-11] MEDS: SODIUM CHLORIDE 0.9% 1,000 ML IV SCH ×2 (06:35→20:27)
[2018-06-11] MEDS: PANTOPRAZOLE 40 MG VIAL IV SCH (10:03)
[2018-06-11] MEDS: CARVEDILOL 25 MG TABLET PO SCH ×2 (10:04→21:12)
[2018-06-11] MEDS: MULTIVITAMIN (CENTRUM) TABLET PO SCH (10:04)
[2018-06-11] MEDS: DOCUSATE SODIUM 100 MG CAPSULE PO SCH ×2 (10:04→21:11)
[2018-06-11] MEDS: VALSARTAN/HCTZ 160-12.5 MG TABLET PO SCH (10:04)
[2018-06-11] MEDS: GABAPENTIN 100 MG CAPSULE PO SCH ×3 (10:04→21:11)
[2018-06-11] MEDS: NITROFURANTOIN MACRO/MONO 100 MG CAPSULE PO SCH (21:11)
[2018-06-11] MEDS: POTASSIUM GLUCONATE 500 MG TABLET PO SCH (21:11)
[2018-06-11] MEDS: MAGNESIUM OXIDE 400 MG TABLET PO SCH (21:11)
[2018-06-11] MEDS: PROMETHAZINE 25 MG TABLET PO PRN (22:47)
[2018-06-12] MEDS: SODIUM CHLORIDE 0.9% 1,000 ML IV SCH ×4 (04:30→14:57)
[2018-06-12] MEDS: DOCUSATE SODIUM 100 MG CAPSULE PO SCH ×2 (08:29→20:42)
[2018-06-12] MEDS: PANTOPRAZOLE 40 MG VIAL IV SCH ×2 (08:29→08:32)
[2018-06-12] MEDS: MULTIVITAMIN (CENTRUM) TABLET PO SCH (08:29)
[2018-06-12] MEDS: GABAPENTIN 100 MG CAPSULE PO SCH ×3 (08:29→20:42)
[2018-06-12] MEDS: VALSARTAN/HCTZ 160-12.5 MG TABLET PO SCH (08:29)
[2018-06-12] MEDS: CARVEDILOL 25 MG TABLET PO SCH ×2 (08:29→20:41)
[2018-06-12] MEDS: NITROFURANTOIN MACRO/MONO 100 MG CAPSULE PO SCH (08:29)
[2018-06-12] MEDS: MAGNESIUM OXIDE 400 MG TABLET PO SCH (20:42)
[2018-06-12] MEDS: POTASSIUM GLUCONATE 500 MG TABLET PO SCH (20:42)
[2018-06-12] MEDS ORDERED: SODIUM CHLORIDE 0.9% 1,000 ML IV SCH (22:00)
[2018-06-13 05:39] LABS: Basophils % 0.8 % (0.0-0.8); Eosinophils # 0.1 10*3/uL (0.0-0.87); Eosinophils % 1.6 % (0.00-10.9); Hematocrit 31.7 VOL% (35.7-47.0); Hemoglobin 10.5 GM/DL (12.0-16.0); Immature Granulocytes % 0.8 %; Immature Granulocytes Absolute 0.04 #; Lymphocytes # 1.5 10*3/uL (1.4-4.0); Lymphocytes % 28.1 % (21.3-54.2); Mean Corpuscular HGB Conc 33.1 GM/DL (32-36); Mean Corpuscular Hemoglobin 32 PG (27-34); Mean Corpuscular Volume 96.9 FL (87-102); Mean Platelet Volume 12.9 FL (9.6-12.0); Monocytes # 0.4 10*3/uL (0.11-0.8); Monocytes % 7.2 % (1.7-12.7); Neutrophils # 3.2 10*3/uL (1.4-7.4); Neutrophils % 61.5 % (38.7-73.9); Platelet Count 42 T/CUMM (130-400); Red Blood Count 3.27 MC/CUMM (3.8-5.5); Red Cell Distribution Width 20.1 % (9.3-17.3); White Blood Count 5.2 T/CUMM (4-12)
[2018-06-13 05:43] LABS: Albumin 2.8 G/DL (3.4-5.0); Bilirubin,Total 0.5 MG/DL (0.2-1.0); Calcium 7.8 MG/DL (8.5-10.1); Osmolality,Calculated 277.3 MOS/KG (273-304); Potassium 3.5 MMOL/L (3.5-5.1); Total Protein 5.6 G/DL (6.4-8.3)
[2018-06-13 06:17] LABS: Eosinophils 1 % (0-10); Lymphocytes 24 % (20-55); Segmented Neutrophils 74 % (50-85); Total Cells Counted 100
[2018-06-13 06:18] LABS: Macrocytosis 1+; Platelet Estimate Decreased
[2018-06-13] MEDS: CARVEDILOL 25 MG TABLET PO SCH (10:02)
[2018-06-13] MEDS: VALSARTAN/HCTZ 160-12.5 MG TABLET PO SCH (10:02)
[2018-06-13] MEDS: DOCUSATE SODIUM 100 MG CAPSULE PO SCH (10:02)
[2018-06-13] MEDS: GABAPENTIN 100 MG CAPSULE PO SCH (10:02)
[2018-06-13] MEDS: MULTIVITAMIN (CENTRUM) TABLET PO SCH (10:02)
[2018-06-13] MEDS: PROMETHAZINE 25 MG TABLET PO PRN (12:09)
[2018-06-13 14:21] VITALS: BP 179/87
== END 2018-06-13 12:22 | disposition home health service (06) | DRG 813 ==
LOC: EDUNIT# → EDBD → N.ED 08:32 → N.EDINP 11:56 → N.4E 13:05
PROVIDERS: ADMIT Family Medicine; ATTEND Family Medicine

== ENCOUNTER 2018-08-20 14:42 | Inpatient (IN) ==
[2018-08-20] MEDS ORDERED: ONDANSETRON 4 MG/2 ML VIAL ONE (15:21)
[2018-08-20] MEDS ORDERED: ONDANSETRON 4 MG/2 ML VIAL IV STA (15:21)
[2018-08-20 15:54] LABS: Eosinophils % 2.9 % (0.00-10.9); Hematocrit 19.7 VOL% (35.7-47.0); Hemoglobin 6.6 GM/DL (12.0-16.0); Lymphocytes # 0.7 10*3/uL (1.4-4.0); Lymphocytes % 65.4 % (21.3-54.2); Mean Corpuscular HGB Conc 33.5 GM/DL (32-36); Mean Corpuscular Hemoglobin 33 PG (27-34); Mean Platelet Volume 12.8 FL (9.6-12.0); Monocytes # 0.1 10*3/uL (0.11-0.8); Monocytes % 9.6 % (1.7-12.7); Neutrophils # 0.2 10*3/uL (1.4-7.4); Neutrophils % 22.1 % (38.7-73.9); Platelet Count 59 T/CUMM (130-400); Red Blood Count 2.01 MC/CUMM (3.8-5.5); Red Cell Distribution Width 23.1 % (9.3-17.3)
[2018-08-20 16:17] LABS: Albumin 3.2 G/DL (3.4-5.0); Bilirubin,Total 1.1 MG/DL (0.2-1.0); Calcium 8.6 MG/DL (8.5-10.1); Total Protein 6.8 G/DL (6.4-8.3)
[2018-08-20 16:18] LABS: Osmolality,Calculated 275.8 MOS/KG (273-304); Potassium 3.9 MMOL/L (3.5-5.1)
[2018-08-20] MEDS ORDERED: ACETAMINOPHEN 325 MG TABLET PO PRN ×2 (17:37→19:13)
[2018-08-20] MEDS ORDERED: ONDANSETRON 4 MG/2 ML VIAL IV PRN (17:37)
[2018-08-20 17:51] LABS: Lymphocytes 70 % (20-55); Platelet Estimate Decreased; Segmented Neutrophils 25 % (50-85); Total Cells Counted 100
[2018-08-20 17:52] LABS: Polychromasia Slight
[2018-08-20 17:53] LABS: Acanthocytes 1+; Ovalocytes Slight
[2018-08-20] MEDS ORDERED: POLYETHYLENE GLYCOL POWDER 17 GM PACK PO PRN ×2 (19:13)
[2018-08-20] MEDS ORDERED: FUROSEMIDE 40 MG TABLET PO PRN (19:13)
[2018-08-20] MEDS ORDERED: SODIUM CHLORIDE 0.9% 1,000 ML IV PRN (19:13)
[2018-08-20 20:08] LABS: Basophils % 0.7 % (0.0-0.8); Eosinophils % 1.4 % (0.00-10.9); Hematocrit 20.4 VOL% (35.7-47.0); Hemoglobin 6.9 GM/DL (12.0-16.0); Lymphocytes % 67.1 % (21.3-54.2); Mean Corpuscular HGB Conc 33.8 GM/DL (32-36); Mean Corpuscular Hemoglobin 33 PG (27-34); Mean Corpuscular Volume 98.6 FL (87-102); Mean Platelet Volume 11.6 FL (9.6-12.0); Monocytes # 0.1 10*3/uL (0.11-0.8); Monocytes % 8.9 % (1.7-12.7); NRBC # 0.02 10*3/uL; Neutrophils # 0.3 10*3/uL (1.4-7.4); Neutrophils % 21.9 % (38.7-73.9); Platelet Count 66 T/CUMM (130-400); Red Blood Count 2.07 MC/CUMM (3.8-5.5); Red Cell Distribution Width 23.1 % (9.3-17.3); White Blood Count 1.5 T/CUMM (4-12)
[2018-08-20] MEDS: ONDANSETRON 4 MG/2 ML VIAL IV PRN (20:16)
[2018-08-20] MEDS ORDERED: DOCUSATE SODIUM 100 MG CAPSULE PO SCH (21:00)
[2018-08-20] MEDS: SODIUM CHLORIDE 0.9% 1,000 ML IV SCH (21:17)
[2018-08-20] MEDS: MEGESTROL 40 MG TABLET PO SCH (21:18)
[2018-08-20] MEDS: MAGNESIUM OXIDE 400 MG TABLET PO SCH (21:18)
[2018-08-20] MEDS: CARVEDILOL 25 MG TABLET PO SCH (21:18)
[2018-08-20] MEDS: POTASSIUM GLUCONATE 500 MG TABLET PO SCH (21:18)
[2018-08-20] MEDS: DOCUSATE SODIUM 100 MG CAPSULE PO SCH (21:18)
[2018-08-20] MEDS: GABAPENTIN 100 MG CAPSULE PO SCH (21:18)
[2018-08-20 21:34] LABS: Anisocytosis Slight; Band Neutrophils 2 % (0-10); Burr Cells Slight; Lymphocytes 69 % (20-55); Macrocytosis 2+; Ovalocytes Slight; Platelet Estimate Decreased; Schistocytes Slight; Segmented Neutrophils 22 % (50-85); Total Cells Counted 100
[2018-08-21 05:35] LABS: Eosinophils % 3.1 % (0.00-10.9); Hematocrit 25.4 VOL% (35.7-47.0); Lymphocytes # 0.6 10*3/uL (1.4-4.0); Lymphocytes % 64.6 % (21.3-54.2); Mean Corpuscular HGB Conc 33.5 GM/DL (32-36); Mean Corpuscular Hemoglobin 31 PG (27-34); Mean Corpuscular Volume 93.4 FL (87-102); Mean Platelet Volume 12.8 FL (9.6-12.0); Monocytes # 0.1 10*3/uL (0.11-0.8); Monocytes % 8.3 % (1.7-12.7); Neutrophils # 0.2 10*3/uL (1.4-7.4); Platelet Count 55 T/CUMM (130-400); Red Cell Distribution Width 19.8 % (9.3-17.3)
[2018-08-21 05:40] LABS: Red Blood Count 2.72 MC/CUMM (3.8-5.5)
[2018-08-21 05:41] LABS: Hemoglobin 8.5 GM/DL (12.0-16.0)
[2018-08-21 05:46] LABS: Albumin 2.8 G/DL (3.4-5.0); Bilirubin,Total 1.3 MG/DL (0.2-1.0); Calcium 8.2 MG/DL (8.5-10.1); Osmolality,Calculated 276.7 MOS/KG (273-304); Potassium 3.8 MMOL/L (3.5-5.1); Total Protein 6.1 G/DL (6.4-8.3)
[2018-08-21 06:06] LABS: Band Neutrophils 1 % (0-10); Eosinophils 4 % (0-10); Hypochromasia 1+; Lymphocytes 67 % (20-55); Nucleated Red Blood Cells 1 (0-5); Ovalocytes Slight; Platelet Estimate Decreased; Segmented Neutrophils 23 % (50-85); Total Cells Counted 100
[2018-08-21 06:07] LABS: Atypical Lymphocytes Few; Macrocytosis Slight
[2018-08-21] MEDS ORDERED: hydroCHLOROthiazide 25 MG TABLET PO SCH (09:00)
[2018-08-21] MEDS ORDERED: PANTOPRAZOLE 40 MG TABLET PO SCH (09:00)
[2018-08-21] MEDS ORDERED: ATORVASTATIN 40 MG TABLET PO SCH (09:00)
[2018-08-21] MEDS: DOCUSATE SODIUM 100 MG CAPSULE PO SCH ×2 (10:00→20:32)
[2018-08-21] MEDS: MULTIVITAMIN (CENTRUM) TABLET PO SCH (10:00)
[2018-08-21] MEDS: GABAPENTIN 100 MG CAPSULE PO SCH ×3 (10:00→20:33)
[2018-08-21] MEDS: CARVEDILOL 25 MG TABLET PO SCH ×2 (10:00→20:32)
[2018-08-21] MEDS: amLODIPine 5 MG TABLET PO SCH (10:01)
[2018-08-21] MEDS: MEGESTROL 40 MG TABLET PO SCH ×3 (10:02→20:33)
[2018-08-21] MEDS: PANTOPRAZOLE 40 MG VIAL IV SCH (10:10)
[2018-08-21] MEDS: FILGRASTIM-SNDZ 300 MCG/0.5 ML SYRINGE SUBCUT SCH (11:30)
[2018-08-21] MEDS: SODIUM CHLORIDE 0.9% 1,000 ML IV SCH (14:02)
[2018-08-21] MEDS ORDERED: MAGNESIUM SULF RIDER 2 GM in PREMIX 1 EACH IV PRN (18:35)
[2018-08-21] MEDS: POTASSIUM CHLORIDE IV SCH (20:31)
[2018-08-21] MEDS: MAGNESIUM SULF IV SCH (20:31)
[2018-08-21] MEDS: SODIUM CHLORIDE 0.9% IV SCH (20:31)
[2018-08-21] MEDS: MAGNESIUM OXIDE 400 MG TABLET PO SCH (20:32)
[2018-08-21] MEDS: POTASSIUM GLUCONATE 500 MG TABLET PO SCH (20:32)
[2018-08-22] MEDS: ACETAMINOPHEN 325 MG TABLET PO PRN ×3 (04:24→20:32)
[2018-08-22 05:03] LABS: Basophils % 0.7 % (0.0-0.8); Eosinophils # 0.1 10*3/uL (0.0-0.87); Eosinophils % 3.3 % (0.00-10.9); Hematocrit 23.8 VOL% (35.7-47.0); Hemoglobin 7.9 GM/DL (12.0-16.0); Immature Granulocytes % 9.9 %; Immature Granulocytes Absolute 0.15 #; Lymphocytes # 0.7 10*3/uL (1.4-4.0); Mean Corpuscular HGB Conc 33.2 GM/DL (32-36); Mean Corpuscular Hemoglobin 31 PG (27-34); Mean Corpuscular Volume 93.3 FL (87-102); Monocytes # 0.3 10*3/uL (0.11-0.8); Monocytes % 17.9 % (1.7-12.7); NRBC # 0.04 10*3/uL; Neutrophils # 0.3 10*3/uL (1.4-7.4); Neutrophils % 21.2 % (38.7-73.9); Platelet Count 42 T/CUMM (130-400); Red Blood Count 2.55 MC/CUMM (3.8-5.5); Red Cell Distribution Width 19.9 % (9.3-17.3); White Blood Count 1.5 T/CUMM (4-12)
[2018-08-22 05:29] LABS: Anisocytosis 1+; Band Neutrophils 13 % (0-10); Eosinophils 3 % (0-10); Lymphocytes 64 % (20-55); Platelet Estimate Decreased; Segmented Neutrophils 10 % (50-85); Total Cells Counted 100
[2018-08-22 05:30] LABS: Basophilic Stippling Slight; Poikilocytosis Slight
[2018-08-22 05:51] LABS: Albumin 2.5 G/DL (3.4-5.0); Calcium 7.9 MG/DL (8.5-10.1); Ferritin 1413.6 ng/ml (8-252); Free T4 (Free Thyroxine) 1.12 NG/DL (0.76-1.46); Osmolality,Calculated 275.7 MOS/KG (273-304); Thyroid Stimulating Hormone 3.11 uIU/ml (0.358-3.74); Total Protein 5.8 G/DL (6.4-8.3)
[2018-08-22 08:40] LABS: Amorphous Crystals,Urine Occasional /HPF (Few); Apearance,Urine CLEAR (Clear); Bacteria,Urine Occasional /HPF (Few); Bilirubin,Urine Negative (Negative); Blood, Urine Negative (Negative); Glucose,Urine (UA) Negative (Negative); Hyaline Casts,Urine 3 /LPF (0-3); Ketones,Urine Negative (Negative); Mucus,Urine Occasional /LPF (Occasional); Nitrite,Urine Negative (Negative); Protein,Urine Negative; Squamous Epithelial Cell,Urine Occasional /HPF (0-10); Urine Color Yellow (Yellow); Urine Specific Gravity 1.012 (1.001-1.035); WBC,Urine 6 /HPF (0-6)
[2018-08-22] MEDS ORDERED: SODIUM CHLORIDE 0.9% 1,000 ML IV PRN (08:58)
[2018-08-22] MEDS: FILGRASTIM-SNDZ 300 MCG/0.5 ML SYRINGE SUBCUT SCH (09:27)
[2018-08-22] MEDS: PANTOPRAZOLE 40 MG VIAL IV SCH (09:27)
[2018-08-22] MEDS: DOCUSATE SODIUM 100 MG CAPSULE PO SCH ×2 (09:28→20:32)
[2018-08-22] MEDS: amLODIPine 5 MG TABLET PO SCH (09:28)
[2018-08-22] MEDS: GABAPENTIN 100 MG CAPSULE PO SCH ×3 (09:28→20:32)
[2018-08-22] MEDS: MULTIVITAMIN (CENTRUM) TABLET PO SCH (09:28)
[2018-08-22] MEDS: MEGESTROL 40 MG TABLET PO SCH ×3 (09:28→20:32)
[2018-08-22] MEDS: CARVEDILOL 25 MG TABLET PO SCH ×2 (09:28→20:33)
[2018-08-22] MEDS: MAGNESIUM OXIDE 400 MG TABLET PO SCH (20:32)
[2018-08-22] MEDS: POTASSIUM GLUCONATE 500 MG TABLET PO SCH (20:32)
[2018-08-22] MEDS: POTASSIUM CHLORIDE IV SCH (20:38)
[2018-08-22] MEDS: SODIUM CHLORIDE 0.9% IV SCH (20:38)
[2018-08-22] MEDS: MAGNESIUM SULF IV SCH (20:38)
[2018-08-23] MEDS: ACETAMINOPHEN 325 MG TABLET PO PRN ×2 (04:06→20:19)
[2018-08-23 04:48] LABS: Basophils % 1.3 % (0.0-0.8); Eosinophils # 0.1 10*3/uL (0.0-0.87); Eosinophils % 2.2 % (0.00-10.9); Hemoglobin 12.2 GM/DL (12.0-16.0); Immature Granulocytes % 5.6 %; Immature Granulocytes Absolute 0.13 #; Lymphocytes # 1.2 10*3/uL (1.4-4.0); Lymphocytes % 51.3 % (21.3-54.2); Mean Corpuscular Hemoglobin 30 PG (27-34); Mean Corpuscular Volume 89.6 FL (87-102); Monocytes # 0.6 10*3/uL (0.11-0.8); Monocytes % 24.1 % (1.7-12.7); NRBC # 0.04 10*3/uL; Neutrophils # 0.4 10*3/uL (1.4-7.4); Neutrophils % 15.5 % (38.7-73.9); Red Blood Count 4.13 MC/CUMM (3.8-5.5); Red Cell Distribution Width 19.3 % (9.3-17.3); White Blood Count 2.3 T/CUMM (4-12)
[2018-08-23 04:50] LABS: Platelet Count 27 T/CUMM (130-400)
[2018-08-23] MEDS: MAGNESIUM SULF IV SCH ×2 (05:04→17:01)
[2018-08-23] MEDS: POTASSIUM CHLORIDE IV SCH ×2 (05:04→17:01)
[2018-08-23] MEDS: SODIUM CHLORIDE 0.9% IV SCH ×2 (05:04→17:01)
[2018-08-23 05:12] LABS: Band Neutrophils 2 % (0-10); Eosinophils 2 % (0-10); Lymphocytes 69 % (20-55); Nucleated Red Blood Cells 3 (0-5); Segmented Neutrophils 13 % (50-85); Total Cells Counted 100
[2018-08-23 05:13] LABS: Atypical Lymphocytes Few; Hypochromasia 1+; Ovalocytes Slight; Platelet Estimate Decreased
[2018-08-23] MEDS: PANTOPRAZOLE 40 MG VIAL IV SCH (09:04)
[2018-08-23] MEDS: GABAPENTIN 100 MG CAPSULE PO SCH ×3 (09:05→20:20)
[2018-08-23] MEDS: DOCUSATE SODIUM 100 MG CAPSULE PO SCH ×2 (09:06→20:20)
[2018-08-23] MEDS: CARVEDILOL 25 MG TABLET PO SCH ×2 (09:06→20:20)
[2018-08-23] MEDS: MULTIVITAMIN (CENTRUM) TABLET PO SCH (09:06)
[2018-08-23] MEDS: amLODIPine 5 MG TABLET PO SCH (09:06)
[2018-08-23] MEDS: NYSTATIN 500,000 UNIT/5 ML UDCUP SWISH/SWAL SCH ×4 (09:06→20:19)
[2018-08-23] MEDS: FILGRASTIM-SNDZ 300 MCG/0.5 ML SYRINGE SUBCUT SCH (09:09)
[2018-08-23] MEDS: MEGESTROL 40 MG TABLET PO SCH ×3 (09:14→20:19)
[2018-08-23] MEDS: BUTALBITAL/ACETAMIN/CAFFEINE 50-325-40 MG TABLET PO PRN (09:15)
[2018-08-23] MEDS: POTASSIUM GLUCONATE 500 MG TABLET PO SCH (20:19)
[2018-08-23] MEDS: MAGNESIUM OXIDE 400 MG TABLET PO SCH (20:20)
[2018-08-23] MEDS: ONDANSETRON 4 MG/2 ML VIAL IV PRN (20:45)
[2018-08-24 05:42] LABS: Basophils % 1.4 % (0.0-0.8); Eosinophils % 1.4 % (0.00-10.9); Hematocrit 30.9 VOL% (35.7-47.0); Hemoglobin 10.2 GM/DL (12.0-16.0); Immature Granulocytes % 10.3 %; Immature Granulocytes Absolute 0.15 #; Lymphocytes # 0.7 10*3/uL (1.4-4.0); Lymphocytes % 46.6 % (21.3-54.2); Mean Corpuscular Hemoglobin 30 PG (27-34); Mean Corpuscular Volume 90.6 FL (87-102); Monocytes # 0.4 10*3/uL (0.11-0.8); Neutrophils # 0.2 10*3/uL (1.4-7.4); Neutrophils % 14.3 % (38.7-73.9); Red Blood Count 3.41 MC/CUMM (3.8-5.5); Red Cell Distribution Width 19.6 % (9.3-17.3); White Blood Count 1.5 T/CUMM (4-12)
[2018-08-24 05:47] LABS: Platelet Count 29 T/CUMM (130-400)
[2018-08-24 06:22] LABS: Band Neutrophils 3 % (0-10); Eosinophils 3 % (0-10); Lymphocytes 54 % (20-55); Segmented Neutrophils 25 % (50-85); Total Cells Counted 101
[2018-08-24 06:23] LABS: Platelet Estimate Decreased; Polychromasia Few
[2018-08-24] MEDS ORDERED: VANCOMYCIN INJ 1,000 MG in SODIUM CHLORIDE 0.9% 250 ML IV SCH (09:00)
[2018-08-24] MEDS ORDERED: ceFAZolin 1,000 MG in SYRINGE 1 EACH IV SCH (09:00)
[2018-08-24] MEDS: POLYETHYLENE GLYCOL POWDER 17 GM PACK PO PRN (09:45)
[2018-08-24] MEDS: BUTALBITAL/ACETAMIN/CAFFEINE 50-325-40 MG TABLET PO PRN (09:47)
[2018-08-24] MEDS: amLODIPine 5 MG TABLET PO SCH (09:48)
[2018-08-24] MEDS: GABAPENTIN 100 MG CAPSULE PO SCH ×3 (09:49→20:46)
[2018-08-24] MEDS: CARVEDILOL 25 MG TABLET PO SCH ×2 (09:50→20:46)
[2018-08-24] MEDS: DOCUSATE SODIUM 100 MG CAPSULE PO SCH ×2 (09:50→20:45)
[2018-08-24] MEDS: MULTIVITAMIN (CENTRUM) TABLET PO SCH (09:51)
[2018-08-24] MEDS: MEGESTROL 40 MG TABLET PO SCH ×3 (09:51→20:46)
[2018-08-24] MEDS: NYSTATIN 500,000 UNIT/5 ML UDCUP SWISH/SWAL SCH ×4 (09:52→20:46)
[2018-08-24] MEDS: FILGRASTIM-SNDZ 300 MCG/0.5 ML SYRINGE SUBCUT SCH (09:53)
[2018-08-24] MEDS: PANTOPRAZOLE 40 MG VIAL IV SCH (09:56)
[2018-08-24] MEDS: POTASSIUM CHLORIDE IV SCH ×2 (09:59→22:50)
[2018-08-24] MEDS: SODIUM CHLORIDE 0.9% IV SCH ×2 (09:59→22:50)
[2018-08-24] MEDS: MAGNESIUM SULF IV SCH ×2 (09:59→22:50)
[2018-08-24] MEDS ORDERED: ALBUTEROL/IPRATROPIUM 3 ML NEB RESP TX ONE (16:47)
[2018-08-24] MEDS ORDERED: FUROSEMIDE 20 MG/2 ML VIAL IV ONE (16:49)
[2018-08-24] MEDS ORDERED: methylPREDNISolone SOD SUC 40 MG/1 ML VIAL IV ONE (16:49)
[2018-08-24] MEDS ORDERED: VANCOMYCIN INJ 1,000 MG in SODIUM CHLORIDE 0.9% 250 ML IV ONE (18:30)
[2018-08-24 19:29] LABS: Albumin 2.5 G/DL (3.4-5.0); Calcium 7.8 MG/DL (8.5-10.1); Osmolality,Calculated 272.2 MOS/KG (273-304); Potassium 4.3 MMOL/L (3.5-5.1); Total Protein 6.4 G/DL (6.4-8.3)
[2018-08-24] MEDS: MAGNESIUM OXIDE 400 MG TABLET PO SCH (20:46)
[2018-08-24] MEDS: POTASSIUM GLUCONATE 500 MG TABLET PO SCH (20:47)
[2018-08-24] MEDS: PIPERACILLIN/TAZOBACTAM 3,375 MG in SODIUM CHLORIDE 0.9% 100 ML IV SCH (20:52)
[2018-08-24 21:59] LABS: Apearance,Urine CLEAR (Clear); Bilirubin,Urine Negative (Negative); Blood, Urine Small mg/dL (Negative); Glucose,Urine (UA) Negative (Negative); Hyaline Casts,Urine 1 /LPF (0-3); Ketones,Urine Negative (Negative); Mucus,Urine Occasional /LPF (Occasional); Nitrite,Urine Negative (Negative); Protein,Urine Negative; RBC,Urine <1 /HPF (0-4); Squamous Epithelial Cell,Urine Occasional /HPF (0-10); Urine Specific Gravity 1.005 (1.001-1.035); Urine Urobilinogen < 2.0 EU/DL (0.2-1.0); WBC,Urine 2 /HPF (0-6)
[2018-08-24 22:01] LABS: Urine Color Amber (Yellow)
[2018-08-25] MEDS: PIPERACILLIN/TAZOBACTAM 3,375 MG in SODIUM CHLORIDE 0.9% 100 ML IV SCH ×3 (02:45→21:48)
[2018-08-25 05:22] LABS: Basophils % 0.8 % (0.0-0.8); Hematocrit 31.2 VOL% (35.7-47.0); Hemoglobin 10.3 GM/DL (12.0-16.0); Immature Granulocytes % 6.5 %; Immature Granulocytes Absolute 0.08 #; Lymphocytes # 0.6 10*3/uL (1.4-4.0); Lymphocytes % 45.2 % (21.3-54.2); Mean Corpuscular Hemoglobin 30 PG (27-34); Mean Corpuscular Volume 90.7 FL (87-102); Monocytes # 0.3 10*3/uL (0.11-0.8); Neutrophils # 0.3 10*3/uL (1.4-7.4); Neutrophils % 26.5 % (38.7-73.9); Red Blood Count 3.44 MC/CUMM (3.8-5.5); Red Cell Distribution Width 19.5 % (9.3-17.3); White Blood Count 1.2 T/CUMM (4-12)
[2018-08-25 05:37] LABS: Platelet Count 24 T/CUMM (130-400)
[2018-08-25 05:38] LABS: Albumin 2.2 G/DL (3.4-5.0); Bilirubin,Total 1.2 MG/DL (0.2-1.0); Calcium 8.3 MG/DL (8.5-10.1); Osmolality,Calculated 276.8 MOS/KG (273-304); Potassium 3.8 MMOL/L (3.5-5.1); Total Protein 6.2 G/DL (6.4-8.3)
[2018-08-25 06:06] LABS: Band Neutrophils 12 % (0-10); Eosinophils 1 % (0-10); Lymphocytes 49 % (20-55); Metamyelocytes 3 %; Myelocytes 1 %; Nucleated Red Blood Cells 1 (0-5); Platelet Estimate Decreased; Segmented Neutrophils 13 % (50-85); Total Cells Counted 100
[2018-08-25 06:07] LABS: Acanthocytes 2+; Anisocytosis 1+; Atypical Lymphocytes Few; Hypochromasia Slight; Macrocytosis 1+
[2018-08-25] MEDS: VANCOMYCIN INJ 750 MG in SODIUM CHLORIDE 0.9% 250 ML IV SCH ×2 (06:49→17:31)
[2018-08-25] MEDS: GABAPENTIN 100 MG CAPSULE PO SCH ×3 (09:12→21:47)
[2018-08-25] MEDS: CARVEDILOL 25 MG TABLET PO SCH ×2 (09:12→21:48)
[2018-08-25] MEDS: DOCUSATE SODIUM 100 MG CAPSULE PO SCH ×2 (09:12→21:48)
[2018-08-25] MEDS: MEGESTROL 40 MG TABLET PO SCH ×3 (09:12→21:47)
[2018-08-25] MEDS: MULTIVITAMIN (CENTRUM) TABLET PO SCH (09:12)
[2018-08-25] MEDS: amLODIPine 5 MG TABLET PO SCH (09:12)
[2018-08-25] MEDS: NYSTATIN 500,000 UNIT/5 ML UDCUP SWISH/SWAL SCH ×4 (09:13→21:48)
[2018-08-25] MEDS: FILGRASTIM-SNDZ 480 MCG/0.8 ML SYRINGE SUBCUT SCH (09:16)
[2018-08-25] MEDS: MAGNESIUM SULF IV SCH (12:37)
[2018-08-25] MEDS: POTASSIUM CHLORIDE IV SCH (12:37)
[2018-08-25] MEDS: SODIUM CHLORIDE 0.9% IV SCH (12:37)
[2018-08-25] MEDS: POTASSIUM GLUCONATE 500 MG TABLET PO SCH (21:47)
[2018-08-25] MEDS: MAGNESIUM OXIDE 400 MG TABLET PO SCH (21:47)
[2018-08-26 04:13] LABS: Basophils % 1.3 % (0.0-0.8); Eosinophils % 1.8 % (0.00-10.9); Hematocrit 30.1 VOL% (35.7-47.0); Immature Granulocytes % 9.8 %; Immature Granulocytes Absolute 0.22 #; Lymphocytes # 0.7 10*3/uL (1.4-4.0); Mean Corpuscular HGB Conc 33.2 GM/DL (32-36); Mean Corpuscular Hemoglobin 31 PG (27-34); Mean Corpuscular Volume 91.8 FL (87-102); Monocytes # 0.7 10*3/uL (0.11-0.8); Monocytes % 29.9 % (1.7-12.7); NRBC # 0.02 10*3/uL; Neutrophils # 0.5 10*3/uL (1.4-7.4); Neutrophils % 24.2 % (38.7-73.9); Red Blood Count 3.28 MC/CUMM (3.8-5.5); Red Cell Distribution Width 19.8 % (9.3-17.3); White Blood Count 2.2 T/CUMM (4-12)
[2018-08-26 04:17] LABS: Platelet Count 20 T/CUMM (130-400)
[2018-08-26 04:24] LABS: Osmolality,Calculated 276.8 MOS/KG (273-304); Potassium 4.1 MMOL/L (3.5-5.1)
[2018-08-26 04:55] LABS: Atypical Lymphocytes Few; Band Neutrophils 6 % (0-10); Eosinophils 2 % (0-10); Lymphocytes 45 % (20-55); Metamyelocytes 1 %; Nucleated Red Blood Cells 1 (0-5); Platelet Estimate Decreased; Promyelocytes 1 %; Segmented Neutrophils 14 % (50-85); Total Cells Counted 100
[2018-08-26 04:56] LABS: Hypochromasia 2+
[2018-08-26] MEDS: VANCOMYCIN INJ 750 MG in SODIUM CHLORIDE 0.9% 250 ML IV SCH ×2 (05:58→18:25)
[2018-08-26] MEDS: ONDANSETRON 4 MG/2 ML VIAL IV PRN (06:05)
[2018-08-26] MEDS ORDERED: SODIUM CHLORIDE 0.9% 1,000 ML IV PRN (07:49)
[2018-08-26] MEDS ORDERED: FLUCONAZOLE 200 MG TABLET PO ONE (07:57)
[2018-08-26] MEDS: GABAPENTIN 100 MG CAPSULE PO SCH ×3 (08:32→21:11)
[2018-08-26] MEDS: CARVEDILOL 25 MG TABLET PO SCH ×2 (08:32→20:37)
[2018-08-26] MEDS: FILGRASTIM-SNDZ 480 MCG/0.8 ML SYRINGE SUBCUT SCH (08:32)
[2018-08-26] MEDS: DOCUSATE SODIUM 100 MG CAPSULE PO SCH ×2 (08:32→21:11)
[2018-08-26] MEDS: amLODIPine 5 MG TABLET PO SCH (08:32)
[2018-08-26] MEDS: MEGESTROL 40 MG TABLET PO SCH ×3 (08:32→21:11)
[2018-08-26] MEDS: MULTIVITAMIN (CENTRUM) TABLET PO SCH (08:32)
[2018-08-26] MEDS: NYSTATIN 500,000 UNIT/5 ML UDCUP SWISH/SWAL SCH ×4 (08:33→21:11)
[2018-08-26] MEDS ORDERED: FUROSEMIDE 40 MG/4 ML VIAL IV SCH (09:00)
[2018-08-26] MEDS: MYLANTA/LIDO VISC 2:1 300 ML BOTTLE SWISH/SWAL PRN (10:12)
[2018-08-26] MEDS: ALBUTEROL 2.5 MG/3 ML NEB RESP TX PRN (12:40)
[2018-08-26] MEDS: POTASSIUM CHLORIDE IV SCH (16:38)
[2018-08-26] MEDS: SODIUM CHLORIDE 0.9% IV SCH (16:38)
[2018-08-26] MEDS: MAGNESIUM SULF IV SCH (16:38)
[2018-08-26] MEDS ORDERED: FUROSEMIDE 40 MG/4 ML VIAL IV ONE (17:17)
[2018-08-26] MEDS: PIPERACILLIN/TAZOBACTAM 3,375 MG in SODIUM CHLORIDE 0.9% 100 ML IV SCH (20:48)
[2018-08-26] MEDS: MAGNESIUM OXIDE 400 MG TABLET PO SCH (21:11)
[2018-08-26] MEDS: POTASSIUM GLUCONATE 500 MG TABLET PO SCH (21:11)
[2018-08-27] MEDS: VANCOMYCIN INJ 750 MG in SODIUM CHLORIDE 0.9% 250 ML IV SCH ×2 (04:48→20:36)
[2018-08-27] MEDS: PIPERACILLIN/TAZOBACTAM 3,375 MG in SODIUM CHLORIDE 0.9% 100 ML IV SCH ×3 (06:26→21:46)
[2018-08-27 08:35] LABS: Basophils % 0.5 % (0.0-0.8); Eosinophils % 0.5 % (0.00-10.9); Hematocrit 29.3 VOL% (35.7-47.0); Hemoglobin 9.6 GM/DL (12.0-16.0); Immature Granulocytes % 6.5 %; Immature Granulocytes Absolute 0.12 #; Lymphocytes # 0.6 10*3/uL (1.4-4.0); Lymphocytes % 32.1 % (21.3-54.2); Mean Corpuscular HGB Conc 32.8 GM/DL (32-36); Mean Corpuscular Hemoglobin 31 PG (27-34); Mean Corpuscular Volume 94.2 FL (87-102); Mean Platelet Volume 13.4 FL (9.6-12.0); Monocytes # 0.5 10*3/uL (0.11-0.8); Monocytes % 26.6 % (1.7-12.7); Neutrophils # 0.6 10*3/uL (1.4-7.4); Neutrophils % 33.8 % (38.7-73.9); Red Blood Count 3.11 MC/CUMM (3.8-5.5); Red Cell Distribution Width 19.7 % (9.3-17.3); White Blood Count 1.8 T/CUMM (4-12)
[2018-08-27 08:42] LABS: Platelet Count 28 T/CUMM (130-400)
[2018-08-27 08:54] LABS: Albumin 2.1 G/DL (3.4-5.0); Bilirubin,Total 0.8 MG/DL (0.2-1.0); Calcium 8.2 MG/DL (8.5-10.1); Osmolality,Calculated 278.7 MOS/KG (273-304); Potassium 3.2 MMOL/L (3.5-5.1); Total Protein 6.2 G/DL (6.4-8.3)
[2018-08-27 09:04] LABS: Eosinophils 1 % (0-10); Lymphocytes 56 % (20-55); Segmented Neutrophils 42 % (50-85); Total Cells Counted 100
[2018-08-27 09:16] LABS: Anisocytosis 1+; Elliptocytes 1+; Hypochromasia 1+; Microcytosis 1+
[2018-08-27 09:20] LABS: Atypical Lymphocytes Few
[2018-08-27 09:21] LABS: Polychromasia Slight
[2018-08-27] MEDS: FUROSEMIDE 40 MG/4 ML VIAL IV SCH ×2 (09:44→15:19)
[2018-08-27] MEDS: FILGRASTIM-SNDZ 480 MCG/0.8 ML SYRINGE SUBCUT SCH (09:45)
[2018-08-27] MEDS: amLODIPine 5 MG TABLET PO SCH (09:45)
[2018-08-27] MEDS: FLUCONAZOLE INJ 200 MG in PREMIX 1 EACH IV SCH (09:45)
[2018-08-27] MEDS: NYSTATIN 500,000 UNIT/5 ML UDCUP SWISH/SWAL SCH ×4 (09:46→20:43)
[2018-08-27] MEDS: CARVEDILOL 25 MG TABLET PO SCH ×2 (09:46→20:43)
[2018-08-27] MEDS: GABAPENTIN 100 MG CAPSULE PO SCH ×3 (09:46→20:43)
[2018-08-27] MEDS: DOCUSATE SODIUM 100 MG CAPSULE PO SCH ×2 (09:46→20:43)
[2018-08-27] MEDS: MEGESTROL 40 MG TABLET PO SCH ×3 (09:46→20:43)
[2018-08-27] MEDS: MULTIVITAMIN (CENTRUM) TABLET PO SCH (10:04)
[2018-08-27] MEDS ORDERED: POTASSIUM CHLORIDE RIDER 10 MEQ in PREMIX 1 EACH IV PRN (13:10)
[2018-08-27] MEDS: POTASSIUM CHLORIDE RIDER 20 MEQ in PREMIX 1 EACH IV PRN ×2 (13:26→16:42)
[2018-08-27] MEDS: POTASSIUM GLUCONATE 500 MG TABLET PO SCH (20:42)
[2018-08-27] MEDS: MAGNESIUM OXIDE 400 MG TABLET PO SCH (20:43)
[2018-08-28] MEDS: VANCOMYCIN INJ 750 MG in SODIUM CHLORIDE 0.9% 250 ML IV SCH ×2 (04:11→17:30)
[2018-08-28] MEDS: PIPERACILLIN/TAZOBACTAM 3,375 MG in SODIUM CHLORIDE 0.9% 100 ML IV SCH ×2 (05:15→13:33)
[2018-08-28] MEDS: ONDANSETRON 4 MG/2 ML VIAL IV PRN (05:16)
[2018-08-28 05:59] LABS: Basophils % 0.7 % (0.0-0.8); Eosinophils % 0.7 % (0.00-10.9); Hematocrit 27.9 VOL% (35.7-47.0); Immature Granulocytes % 8.2 %; Immature Granulocytes Absolute 0.11 #; Lymphocytes # 0.5 10*3/uL (1.4-4.0); Lymphocytes % 35.1 % (21.3-54.2); Mean Corpuscular HGB Conc 32.3 GM/DL (32-36); Mean Corpuscular Hemoglobin 30 PG (27-34); Mean Corpuscular Volume 93.6 FL (87-102); Monocytes # 0.1 10*3/uL (0.11-0.8); Monocytes % 10.4 % (1.7-12.7); Neutrophils # 0.6 10*3/uL (1.4-7.4); Neutrophils % 44.9 % (38.7-73.9); Red Blood Count 2.98 MC/CUMM (3.8-5.5); Red Cell Distribution Width 19.9 % (9.3-17.3); White Blood Count 1.3 T/CUMM (4-12)
[2018-08-28 06:02] LABS: Platelet Count 14 T/CUMM (130-400)
[2018-08-28 06:18] LABS: Albumin 1.9 G/DL (3.4-5.0); Bilirubin,Total 0.7 MG/DL (0.2-1.0); Calcium 8.2 MG/DL (8.5-10.1); Osmolality,Calculated 284.4 MOS/KG (273-304); Potassium 3.3 MMOL/L (3.5-5.1); Total Protein 6.1 G/DL (6.4-8.3)
[2018-08-28 06:30] LABS: Anisocytosis 1+; Atypical Lymphocytes Few; Band Neutrophils 29 % (0-10); Elliptocytes Few; Eosinophils 1 % (0-10); Lymphocytes 37 % (20-55); Macrocytosis 1+; Metamyelocytes 4 %; Myelocytes 1 %; Nucleated Red Blood Cells 1 (0-5); Ovalocytes 1+; Platelet Estimate Decreased; Segmented Neutrophils 23 % (50-85); Total Cells Counted 99
[2018-08-28] MEDS ORDERED: SODIUM CHLORIDE 0.9% 1,000 ML IV PRN (06:35)
[2018-08-28 08:30] LABS: % Iron Saturation 57.9 % (18-50); Ferritin 4206.1 ng/ml (8-252)
[2018-08-28] MEDS: MORPHINE 4 MG/1 ML VIAL IV PRN (09:10)
[2018-08-28] MEDS: GABAPENTIN 100 MG CAPSULE PO SCH ×3 (09:11→20:23)
[2018-08-28] MEDS: amLODIPine 5 MG TABLET PO SCH (09:11)
[2018-08-28] MEDS: MULTIVITAMIN (CENTRUM) TABLET PO SCH (09:11)
[2018-08-28] MEDS: CARVEDILOL 25 MG TABLET PO SCH ×2 (09:11→20:23)
[2018-08-28] MEDS: DOCUSATE SODIUM 100 MG CAPSULE PO SCH ×3 (09:12→20:44)
[2018-08-28] MEDS: FLUCONAZOLE INJ 200 MG in PREMIX 1 EACH IV SCH (09:12)
[2018-08-28] MEDS: MEGESTROL 40 MG TABLET PO SCH ×3 (09:12→20:23)
[2018-08-28 09:13] LABS: Folate 12.7 NG/ML (5.4-24.0)
[2018-08-28] MEDS: FUROSEMIDE 40 MG/4 ML VIAL IV SCH ×2 (09:13→16:53)
[2018-08-28] MEDS: FILGRASTIM-SNDZ 480 MCG/0.8 ML SYRINGE SUBCUT SCH (09:14)
[2018-08-28] MEDS: NYSTATIN 500,000 UNIT/5 ML UDCUP SWISH/SWAL SCH ×4 (10:50→20:45)
[2018-08-28] MEDS: POLYETHYLENE GLYCOL POWDER 17 GM PACK PO PRN (11:20)
[2018-08-28] MEDS: ALBUTEROL 2.5 MG/3 ML NEB RESP TX PRN ×2 (15:32→21:36)
[2018-08-28] MEDS: POTASSIUM GLUCONATE 500 MG TABLET PO SCH (20:22)
[2018-08-28] MEDS: valACYclovir 500 MG TABLET PO SCH (20:23)
[2018-08-28] MEDS: MAGNESIUM OXIDE 400 MG TABLET PO SCH (20:23)
[2018-08-28] MEDS: AMPICILLIN/SULBACTAM 1,500 MG in SODIUM CHLORIDE 0.9% 100 ML IV SCH ×2 (20:23→23:46)
[2018-08-29] MEDS: AMPICILLIN/SULBACTAM 1,500 MG in SODIUM CHLORIDE 0.9% 100 ML IV SCH ×4 (05:13→23:24)
[2018-08-29 06:24] LABS: Hematocrit 25.5 VOL% (35.7-47.0); Hemoglobin 8.2 GM/DL (12.0-16.0); Immature Granulocytes % 8.1 %; Immature Granulocytes Absolute 0.08 #; Lymphocytes # 0.4 10*3/uL (1.4-4.0); Lymphocytes % 36.4 % (21.3-54.2); Mean Corpuscular HGB Conc 32.2 GM/DL (32-36); Mean Corpuscular Hemoglobin 31 PG (27-34); Mean Corpuscular Volume 96.2 FL (87-102); Monocytes # 0.1 10*3/uL (0.11-0.8); Monocytes % 10.1 % (1.7-12.7); Neutrophils # 0.4 10*3/uL (1.4-7.4); Neutrophils % 43.4 % (38.7-73.9); Red Blood Count 2.65 MC/CUMM (3.8-5.5); Red Cell Distribution Width 19.9 % (9.3-17.3)
[2018-08-29 06:35] LABS: Platelet Count 13 T/CUMM (130-400)
[2018-08-29 07:01] LABS: Anisocytosis 2+; Atypical Lymphocytes 2+; Band Neutrophils 8 % (0-10); Eosinophils 1 % (0-10); Hypochromasia 2+; Lymphocytes 35 % (20-55); Macrocytosis 2+; Metamyelocytes 6 %; Myelocytes 3 %; Platelet Estimate Decreased; Segmented Neutrophils 37 % (50-85); Total Cells Counted 100
[2018-08-29 07:18] LABS: Albumin 1.9 G/DL (3.4-5.0); Bilirubin,Total 0.6 MG/DL (0.2-1.0); Calcium 7.9 MG/DL (8.5-10.1); Osmolality,Calculated 290.1 MOS/KG (273-304); Potassium 3.2 MMOL/L (3.5-5.1); Total Protein 5.5 G/DL (6.4-8.3)
[2018-08-29] MEDS: ALBUTEROL 2.5 MG/3 ML NEB RESP TX PRN ×3 (08:03→19:32)
[2018-08-29] MEDS ORDERED: SODIUM CHLORIDE 0.9% 1,000 ML IV PRN (08:31)
[2018-08-29] MEDS: FUROSEMIDE 40 MG/4 ML VIAL IV SCH ×2 (10:05→16:25)
[2018-08-29] MEDS: FLUCONAZOLE INJ 200 MG in PREMIX 1 EACH IV SCH (10:05)
[2018-08-29] MEDS: NYSTATIN 500,000 UNIT/5 ML UDCUP SWISH/SWAL SCH ×5 (10:05→23:23)
[2018-08-29] MEDS: MEGESTROL 40 MG TABLET PO SCH ×3 (10:06→21:05)
[2018-08-29] MEDS: MULTIVITAMIN (CENTRUM) TABLET PO SCH (10:06)
[2018-08-29] MEDS: GABAPENTIN 100 MG CAPSULE PO SCH ×3 (10:06→21:05)
[2018-08-29] MEDS: valACYclovir 500 MG TABLET PO SCH (10:06)
[2018-08-29] MEDS: amLODIPine 5 MG TABLET PO SCH (10:06)
[2018-08-29] MEDS: CARVEDILOL 25 MG TABLET PO SCH ×2 (10:06→21:05)
[2018-08-29] MEDS: FILGRASTIM-SNDZ 480 MCG/0.8 ML SYRINGE SUBCUT SCH (10:07)
[2018-08-29] MEDS: DOCUSATE SODIUM 100 MG CAPSULE PO SCH ×2 (10:30→21:06)
[2018-08-29] MEDS: POTASSIUM CHLORIDE RIDER 20 MEQ in PREMIX 1 EACH IV PRN ×2 (13:33→18:44)
[2018-08-29] MEDS: MAGNESIUM OXIDE 400 MG TABLET PO SCH (21:05)
[2018-08-29] MEDS: POTASSIUM GLUCONATE 500 MG TABLET PO SCH (21:05)
[2018-08-29] MEDS: ONDANSETRON 4 MG/2 ML VIAL IV PRN (21:18)
[2018-08-30] MEDS ORDERED: HEPARIN LOCK FLUSH 500 UNIT/5 ML SYRINGE IV ONE (03:44)
[2018-08-30 04:27] LABS: Basophils % 1.2 % (0.0-0.8); Eosinophils % 1.2 % (0.00-10.9); Hematocrit 31.2 VOL% (35.7-47.0); Hemoglobin 9.8 GM/DL (12.0-16.0); Immature Granulocytes % 14.5 %; Immature Granulocytes Absolute 0.12 #; Lymphocytes # 0.3 10*3/uL (1.4-4.0); Lymphocytes % 37.3 % (21.3-54.2); Mean Corpuscular HGB Conc 31.4 GM/DL (32-36); Mean Corpuscular Hemoglobin 30 PG (27-34); Mean Corpuscular Volume 94.8 FL (87-102); Mean Platelet Volume 11.8 FL (9.6-12.0); Monocytes # 0.1 10*3/uL (0.11-0.8); Monocytes % 7.2 % (1.7-12.7); Neutrophils # 0.3 10*3/uL (1.4-7.4); Neutrophils % 38.6 % (38.7-73.9); Red Blood Count 3.29 MC/CUMM (3.8-5.5); Red Cell Distribution Width 19.3 % (9.3-17.3)
[2018-08-30 04:32] LABS: White Blood Count 0.8 T/CUMM (4-12)
[2018-08-30 04:33] LABS: Platelet Count 30 T/CUMM (130-400)
[2018-08-30 04:40] LABS: Calcium 8.4 MG/DL (8.5-10.1); Osmolality,Calculated 286.4 MOS/KG (273-304); Potassium 3.4 MMOL/L (3.5-5.1)
[2018-08-30] MEDS: AMPICILLIN/SULBACTAM 1,500 MG in SODIUM CHLORIDE 0.9% 100 ML IV SCH ×4 (05:41→23:33)
[2018-08-30 05:50] LABS: Band Neutrophils 12 % (0-10); Lymphocytes 42 % (20-55); Segmented Neutrophils 44 % (50-85); Total Cells Counted 100
[2018-08-30 05:51] LABS: Anisocytosis 1+; Hypochromasia 1+; Ovalocytes 1+; Platelet Estimate Decreased
[2018-08-30] MEDS: ALBUTEROL 2.5 MG/3 ML NEB RESP TX PRN (08:15)
[2018-08-30] MEDS: MULTIVITAMIN (CENTRUM) TABLET PO SCH (10:07)
[2018-08-30] MEDS: CARVEDILOL 25 MG TABLET PO SCH ×2 (10:08→20:54)
[2018-08-30] MEDS: GABAPENTIN 100 MG CAPSULE PO SCH ×3 (10:08→20:55)
[2018-08-30] MEDS: NYSTATIN 500,000 UNIT/5 ML UDCUP SWISH/SWAL SCH ×4 (10:08→20:55)
[2018-08-30] MEDS: MEGESTROL 40 MG TABLET PO SCH ×3 (10:08→20:55)
[2018-08-30] MEDS: DOCUSATE SODIUM 100 MG CAPSULE PO SCH ×2 (10:08→20:54)
[2018-08-30] MEDS: amLODIPine 5 MG TABLET PO SCH (10:09)
[2018-08-30] MEDS: valACYclovir 500 MG TABLET PO SCH (10:09)
[2018-08-30] MEDS: FLUCONAZOLE INJ 200 MG in PREMIX 1 EACH IV SCH ×2 (11:08→15:49)
[2018-08-30] MEDS: FUROSEMIDE 40 MG/4 ML VIAL IV SCH ×2 (11:08→15:49)
[2018-08-30] MEDS: FILGRASTIM-SNDZ 480 MCG/0.8 ML SYRINGE SUBCUT SCH ×2 (11:09→15:49)
[2018-08-30] MEDS: ALBUTEROL/IPRATROPIUM 3 ML NEB RESP TX SCH ×2 (19:18→23:00)
[2018-08-30] MEDS: MAGNESIUM OXIDE 400 MG TABLET PO SCH (20:54)
[2018-08-30] MEDS: POTASSIUM GLUCONATE 500 MG TABLET PO SCH (20:56)
[2018-08-31] MEDS: MORPHINE 4 MG/1 ML VIAL IV PRN ×3 (00:34→19:08)
[2018-08-31] MEDS: ALBUTEROL/IPRATROPIUM 3 ML NEB RESP TX SCH ×5 (03:00→20:28)
[2018-08-31] MEDS ORDERED: HEPARIN LOCK FLUSH 500 UNIT/5 ML SYRINGE IV ONE (03:38)
[2018-08-31 04:44] LABS: Basophils % 1.7 % (0.0-0.8); Hematocrit 25.4 VOL% (35.7-47.0); Hemoglobin 8.2 GM/DL (12.0-16.0); Immature Granulocytes % 15.7 %; Immature Granulocytes Absolute 0.19 #; Lymphocytes # 0.4 10*3/uL (1.4-4.0); Lymphocytes % 30.6 % (21.3-54.2); Mean Corpuscular HGB Conc 32.3 GM/DL (32-36); Mean Corpuscular Hemoglobin 30 PG (27-34); Mean Corpuscular Volume 93.7 FL (87-102); Monocytes # 0.1 10*3/uL (0.11-0.8); Monocytes % 4.1 % (1.7-12.7); Neutrophils # 0.6 10*3/uL (1.4-7.4); Neutrophils % 47.9 % (38.7-73.9); Red Blood Count 2.71 MC/CUMM (3.8-5.5); Red Cell Distribution Width 18.9 % (9.3-17.3); White Blood Count 1.2 T/CUMM (4-12)
[2018-08-31 04:46] LABS: Platelet Count 18 T/CUMM (130-400)
[2018-08-31 04:59] LABS: Calcium 8.6 MG/DL (8.5-10.1); Osmolality,Calculated 287.4 MOS/KG (273-304); Potassium 3.1 MMOL/L (3.5-5.1)
[2018-08-31 05:27] LABS: Band Neutrophils 6 % (0-10); Eosinophils 2 % (0-10); Lymphocytes 28 % (20-55); Segmented Neutrophils 58 % (50-85); Total Cells Counted 100
[2018-08-31 05:28] LABS: Hypochromasia 1+; Ovalocytes 1+; Platelet Estimate Decreased
[2018-08-31] MEDS: AMPICILLIN/SULBACTAM 1,500 MG in SODIUM CHLORIDE 0.9% 100 ML IV SCH ×3 (06:20→18:27)
[2018-08-31] MEDS: FUROSEMIDE 40 MG/4 ML VIAL IV SCH ×2 (08:16→18:27)
[2018-08-31] MEDS: FLUCONAZOLE INJ 200 MG in PREMIX 1 EACH IV SCH (08:16)
[2018-08-31] MEDS: FILGRASTIM-SNDZ 480 MCG/0.8 ML SYRINGE SUBCUT SCH (08:35)
[2018-08-31] MEDS ORDERED: LABETALOL 20 MG/4 ML SYRINGE IV PRN (09:28)
[2018-08-31] MEDS: MULTIVITAMIN (CENTRUM) TABLET PO SCH (10:17)
[2018-08-31] MEDS: DOCUSATE SODIUM 100 MG CAPSULE PO SCH (10:17)
[2018-08-31] MEDS: GABAPENTIN 100 MG CAPSULE PO SCH ×2 (10:18→15:25)
[2018-08-31] MEDS: MEGESTROL 40 MG TABLET PO SCH (10:18)
[2018-08-31] MEDS: NYSTATIN 500,000 UNIT/5 ML UDCUP SWISH/SWAL SCH (10:18)
[2018-08-31] MEDS: CARVEDILOL 25 MG TABLET PO SCH ×2 (10:18→20:45)
[2018-08-31] MEDS: valACYclovir 500 MG TABLET PO SCH (10:19)
[2018-08-31] MEDS: amLODIPine 5 MG TABLET PO SCH (10:19)
[2018-09-01] MEDS: ONDANSETRON 4 MG/2 ML VIAL IV PRN (00:11)
[2018-09-01] MEDS: MORPHINE 4 MG/1 ML VIAL IV PRN ×2 (00:13→21:53)
[2018-09-01] MEDS: AMPICILLIN/SULBACTAM 1,500 MG in SODIUM CHLORIDE 0.9% 100 ML IV SCH ×3 (00:18→18:19)
[2018-09-01] MEDS: ALBUTEROL/IPRATROPIUM 3 ML NEB RESP TX SCH (02:01)
[2018-09-01] MEDS: LORazepam 2 MG/1 ML VIAL IV PRN (05:06)
[2018-09-01] MEDS: FUROSEMIDE 40 MG/4 ML VIAL IV SCH (18:20)
[2018-09-01] MEDS: FLUCONAZOLE INJ 200 MG in PREMIX 1 EACH IV SCH (18:20)
[2018-09-01] MEDS: MYLANTA/LIDO VISC 2:1 300 ML BOTTLE SWISH/SWAL PRN (21:18)
[2018-09-02] MEDS: AMPICILLIN/SULBACTAM 1,500 MG in SODIUM CHLORIDE 0.9% 100 ML IV SCH ×5 (00:16→23:57)
[2018-09-02 08:45] VITALS: BP 155/72
[2018-09-02] MEDS: MORPHINE 4 MG/1 ML VIAL IV PRN (10:09)
[2018-09-02] MEDS ORDERED: HEPARIN LOCK FLUSH 500 UNIT/5 ML SYRINGE IV ONE ×2 (12:39→19:04)
[2018-09-02] MEDS: ALBUTEROL/IPRATROPIUM 3 ML NEB RESP TX SCH (21:04)
[2018-09-03] MEDS: MORPHINE 4 MG/1 ML VIAL IV PRN ×2 (00:38→04:18)
[2018-09-03] MEDS: ALBUTEROL/IPRATROPIUM 3 ML NEB RESP TX SCH ×4 (01:00→19:45)
[2018-09-03] MEDS ORDERED: ALBUTEROL/IPRATROPIUM 3 ML NEB RESP TX SCH (01:00)
[2018-09-03] MEDS: LORazepam 2 MG/1 ML VIAL IV PRN ×3 (02:30→23:39)
[2018-09-03] MEDS: AMPICILLIN/SULBACTAM 1,500 MG in SODIUM CHLORIDE 0.9% 100 ML IV SCH ×3 (06:03→18:25)
[2018-09-03] MEDS ORDERED: HEPARIN LOCK FLUSH 500 UNIT/5 ML SYRINGE IV ONE (19:02)
[2018-09-04] MEDS: ALBUTEROL/IPRATROPIUM 3 ML NEB RESP TX SCH ×4 (01:20→20:53)
[2018-09-04] MEDS: AMPICILLIN/SULBACTAM 1,500 MG in SODIUM CHLORIDE 0.9% 100 ML IV SCH ×4 (01:28→17:35)
[2018-09-04] MEDS: LORazepam 2 MG/1 ML VIAL IV PRN ×4 (05:33→23:49)
[2018-09-04] MEDS: ONDANSETRON 4 MG/2 ML VIAL IV PRN (18:30)
[2018-09-05] MEDS: AMPICILLIN/SULBACTAM 1,500 MG in SODIUM CHLORIDE 0.9% 100 ML IV SCH ×2 (00:59→06:13)
[2018-09-05] MEDS: ALBUTEROL/IPRATROPIUM 3 ML NEB RESP TX SCH ×4 (01:36→19:46)
[2018-09-05] MEDS: LORazepam 2 MG/1 ML VIAL IV PRN ×2 (06:17→18:59)
[2018-09-05] MEDS ORDERED: HEPARIN LOCK FLUSH 500 UNIT/5 ML SYRINGE IV ONE ×2 (07:49→17:48)
[2018-09-05] MEDS: MORPHINE 4 MG/1 ML VIAL IV PRN ×2 (07:53→17:50)
[2018-09-06] MEDS: LORazepam 2 MG/1 ML VIAL IV PRN ×3 (02:47→17:14)
[2018-09-06] MEDS: ALBUTEROL/IPRATROPIUM 3 ML NEB RESP TX SCH ×2 (07:00→12:22)
== END 2018-09-06 19:10 | disposition expired | DRG 808 ==
LOC: EDUNIT# → N.ED 14:42 → N.EDINP 18:13 → N.4E 19:03
PROVIDERS: ADMIT Family Medicine; ATTEND Family Medicine